=== PATIENT | female | born 1960 | race Caucasian/White ===

== ENCOUNTER 2024-09-01 14:05 | Inpatient (IN) ==
[2024-09-01 15:11] LABS: Hematocrit (blood only) 40.5 % (37.0-47.0); Hemoglobin 13.0 g/dl (12.0-16.0); Immature Granulocytes # (auto) 0.03 K/uL (0.01-0.20); Immature Granulocytes % (auto) 0.3 %; Mean Corpuscular Hemoglobin 31.3 pg (25.0-34.0); Mean Corpuscular Volume 97.4 fL (80.0-100.0); Platelet Count 565 K/uL (130-400); RDW Standard Deviation 54.5 fL (36.4-46.3); Red Blood Count 4.16 M/uL (4.20-5.40); White Blood Count 10.34 K/ul (4.8-10.8)
--- NOTE | 2024-09-01 15:24 | Emergency Department Note ---
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 This was diagnosed last April 2023. The patient started noticing left leg swelling. The patient also noticed heavy breathing. She called her family doctor and was encouraged to come to the emergency department. She was started on Lasix recently because of the leg swelling. ROS: See above HPI for pertinent positives & negatives. A total of 10 systems reviewed and were otherwise negative. PAST MEDICAL HISTORY: See Below PAST SURGICAL HISTORY: See Below FAMILY HISTORY: See Below SOCIAL HISTORY: See Below HOME MEDICATIONS: See Below ALLERGIES: See Below VITALS: See Below PHYSICAL EXAMINATION: GENERAL: Patient is awake alert in no acute distress patient is resting comfortably and showing no signs of anxiety EYES: The conjunctivae are clear. The pupils are round and reactive. EARS, NOSE, MOUTH AND THROAT: The nose is without any evidence of any deformity. NECK: The neck is nontender and supple. JVD was noted. RESPIRATORY: Rales were noted in the right lung field. There is no tachypnea or conversational dyspnea. CARDIOVASCULAR: Regular rate and rhythm noted there no murmurs rubs or gallops normal S1 normal S2. GASTROINTESTINAL: The abdomen is soft. Abdomen is nontender. MUSCULOSKELETAL/EXTREMITIES: Right lower extremity amputation was noted. SKIN: Pedal edema was noted in the left leg. Skin was warm and dry. NEUROLOGIC: Patient is awake alert and oriented x3 MEDICAL DECISION MAKING: The patient is a 64-year-old female who presented to the emergency department because of difficulty breathing. The patient has a history of a sarcoma in her right leg. This was treated surgically with amputation. She also has a history of venous thromboembolic disease. The patient was sent to the emergency department by her cancer doctor because of left leg swelling. I discussed the patient's laboratory and radiographic studies with her. The patient's primary oncologist did talk to me as well. There is concerned about a pelvic mass or possibly venous thromboembolic disease of the pelvis. For this reason CT venogram was obtained. The report was reviewed. I discussed patient's laboratory and radiographic studies with her. Ultimately I do feel the patient would be a better candidate for inpatient management especially given her hypoxia as well as her bilateral pleural effusions. She does take blood thinners. I discussed her condition with the on-call [facility] hospitalist. They have agreed to evaluate the patient in the emergency department. Triage Nursing notes reviewed. Prior medical records reviewed Vital Signs: reviewed and remarkable for no significant abnormalities Differential diagnosis: Reactive airway disease, pneumonia, pneumothorax, COPD, CHF, infections, cardiac ischemia, pulmonary embolism, musculoskeletal, gastrointestinal, as well as other pathologies. ER treatment provided: See below Diagnostics interpreted by me: ECG: EKG was obtained in the emergency department. My interpretation is sinus tachycardia at 104 bpm. There is no ectopy. There is no acute ST segment abnormalities noted. This was compared to a tracing from May 02, 2023. No changes were noted. Cardiac Monitoring: An order was placed for continuous cardiac monitoring. The monitor shows a rate of 99 bpm with sinus rhythm. Laboratory studies: As stated above and show below. Imaging studies: See below. Radiographic imaging was reviewed by myself Consultation(s): I discussed this case with Dr. Wilson who is the patient's primary oncologist. I discussed this case with Dr. Hannah [facility] Past Med/Surg History Problem List (Updated 09/01/24 @ 20:36 by Henry Rashid DO) Hypoxia (Acute) Leg edema (Acute) Kidney mass (Acute) SOB (shortness of breath) (Acute) Bilateral pleural effusion (Acute) Medical History Pulmonary embolism Sarcoma of right thigh CLL (chronic lymphocytic leukemia) Surgical History History of cataract surgery Bilateral eyes History of hysterectomy Social History Smoking Status: Never smoker Preferred Language: Bengali Beliefs That Will Affect Care: Amish Feels Safe at Home: Yes Allergies Allergies Allergy/AdvReac Type Severity Reaction Status Date / Time procaine [From Novocain] Allergy Unknown Unknown Verified 05/19/23 20:22 Home Meds Home Medications Medication Instructions Recorded Confirmed cholecalciferol (vitamin D3) 125 1,000 mcg PO QAM 04/16/23 09/01/24 mcg (5,000 unit) tablet (Vitamin D3) apixaban 5 mg tablet (Eliquis) 5 mg PO BID 05/02/23 09/01/24 gabapentin 100 mg capsule 300 mg PO TID 05/02/23 09/01/24 prochlorperazine maleate 10 mg 10 mg PO Q6H PRN Nausea 05/02/23 09/01/24 tablet (Compazine) albuterol sulfate 90 mcg/actuation 2 puff inhalation Q4H PRN sob 09/01/24 09/01/24 aerosol inhaler (Ventolin HFA) hydrochlorothiazide 25 mg tablet 25 mg PO QAM 09/01/24 09/01/24 ondansetron 8 mg disintegrating 8 mg PO DIRECTED PRN n/v 09/01/24 09/01/24 tablet potassium chloride 20 mEq 40 meq PO DAILY 09/01/24 09/01/24 tablet,extended release(part/cryst) Results & Data (ED) Vital Signs Vital Signs - 24 hr 09/01/24 14:25 09/01/24 14:29 09/01/24 14:29 Temperature 36.9 C Temperature Source Temporal Artery Scan Pulse Rate 109 H Pulse Rate [Apical] 108 H Pulse Rate from SpO2 Sensor Pulse Rhythm [Apical] Respiratory Rate 18 20 Respiratory Effort / Characteristics Non-Labored Spontaneous Non-Labored Spontaneous Respiratory Depth Normal Normal Respiratory Pattern Regular Regular Blood Pressure 118/74 Blood Pressure [Right Arm] 123/68 Blood Pressure Mean 88 Blood Pressure Mean [Right Arm] 86 Blood Pressure Position [Right Arm] Pulse Oximetry 94 94 93 Oxygen Delivery Method Room Air Room Air Room Air Oxygen Flow Rate Sepsis Recent Fever Within 48 Hours No Sepsis New/Unexplained Change in Mental Status N/A Sepsis Action Taken by Nursing No Action Required 09/01/24 14:48 09/01/24 14:53 09/01/24 14:53 Temperature Temperature Source Pulse Rate 105 H Pulse Rate [Apical] Pulse Rate from SpO2 Sensor Pulse Rhythm [Apical] Respiratory Rate 25 H Respiratory Effort / Characteristics Respiratory Depth Respiratory Pattern Blood Pressure 112/67 112/67 Blood Pressure [Right Arm] Blood Pressure Mean 93 93 Blood Pressure Mean [Right Arm] Blood Pressure Position [Right Arm] Pulse Oximetry Oxygen Delivery Method Oxygen Flow Rate Sepsis Recent Fever Within 48 Hours Sepsis New/Unexplained Change in Mental Status Sepsis Action Taken by Nursing 09/01/24 14:56 09/01/24 14:58 09/01/24 15:15 Temperature Temperature Source Pulse Rate 108 H 108 H Pulse Rate [Apical] Pulse Rate from SpO2 Sensor 108 H Pulse Rhythm [Apical] Respiratory Rate 19 Respiratory Effort / Characteristics Respiratory Depth Respiratory Pattern Blood Pressure Blood Pressure [Right Arm] Blood Pressure Mean Blood Pressure Mean [Right Arm] Blood Pressure Position [Right Arm] Pulse Oximetry 92 93 Oxygen Delivery Method Room Air Oxygen Flow Rate Sepsis Recent Fever Within 48 Hours Sepsis New/Unexplained Change in Mental Status Sepsis Action Taken by Nursing 09/01/24 15:51 09/01/24 16:05 09/01/24 16:21 Temperature Temperature Source Pulse Rate 105 H 107 H Pulse Rate [Apical] 109 H Pulse Rate from SpO2 Sensor 104 H 108 H Pulse Rhythm [Apical] Respiratory Rate 20 26 H 28 H Respiratory Effort / Characteristics Respiratory Depth Normal Respiratory Pattern Blood Pressure Blood Pressure [Right Arm] 130/76 Blood Pressure Mean Blood Pressure Mean [Right Arm] 94 Blood Pressure Position [Right Arm] Semi-fowlers Pulse Oximetry 94 93 94 Oxygen Delivery Method Room Air Oxygen Flow Rate Sepsis Recent Fever Within 48 Hours Sepsis New/Unexplained Change in Mental Status Sepsis Action Taken by Nursing 09/01/24 16:30 09/01/24 16:30 09/01/24 16:30 Temperature Temperature Source Pulse Rate 103 H Pulse Rate [Apical] Pulse Rate from SpO2 Sensor 101 H Pulse Rhythm [Apical] Respiratory Rate 25 H Respiratory Effort / Characteristics Respiratory Depth Respiratory Pattern Blood Pressure 122/79 122/79 Blood Pressure [Right Arm] Blood Pressure Mean 91 91 Blood Pressure Mean [Right Arm] Blood Pressure Position [Right Arm] Pulse Oximetry 93 Oxygen Delivery Method Oxygen Flow Rate Sepsis Recent Fever Within 48 Hours Sepsis New/Unexplained Change in Mental Status Sepsis Action Taken by Nursing 09/01/24 17:33 09/01/24 18:00 09/01/24 18:56 Temperature Temperature Source Pulse Rate 105 H 103 H Pulse Rate [Apical] 107 H Pulse Rate from SpO2 Sensor 106 H 102 H Pulse Rhythm [Apical] Respiratory Rate 27 H 22 28 H Respiratory Effort / Characteristics Respiratory Depth Respiratory Pattern Blood Pressure Blood Pressure [Right Arm] 107/71 Blood Pressure Mean Blood Pressure Mean [Right Arm] 83 Blood Pressure Position [Right Arm] Semi-fowlers Pulse Oximetry 96 96 95 Oxygen Delivery Method Nasal Cannula Oxygen Flow Rate 2 Sepsis Recent Fever Within 48 Hours Sepsis New/Unexplained Change in Mental Status Sepsis Action Taken by Nursing 09/01/24 19:30 Temperature Temperature Source Pulse Rate Pulse Rate [Apical] 99 H Pulse Rate from SpO2 Sensor Pulse Rhythm [Apical] Regular Respiratory Rate 24 Respiratory Effort / Characteristics Non-Labored Spontaneous Respiratory Depth Normal Respiratory Pattern Regular Blood Pressure Blood Pressure [Right Arm] 113/67 Blood Pressure Mean Blood Pressure Mean [Right Arm] 82 Blood Pressure Position [Right Arm] Pulse Oximetry 96 Oxygen Delivery Method Room Air Oxygen Flow Rate Sepsis Recent Fever Within 48 Hours Sepsis New/Unexplained Change in Mental Status Sepsis Action Taken by Skilled Nursing Medications Current Medication List: was personally reviewed by me Laboratory Data Attestation: I reviewed the patient's lab results. 09/01/24 14:49 09/01/24 14:49 Lab Results 09/01/24 09/01/24 Range/Units 14:49 15:06 WBC 10.34 (4.8-10.8) K/ul RBC 4.16 L (4.20-5.40) M/uL Hgb 13.0 (12.0-16.0) g/dl Hct 40.5 (37.0-47.0) % MCV 97.4 (80.0-100.0) fL MCH 31.3 (25.0-34.0) pg MCHC 32.1 (32.0-36.0) g/dL RDW Std Deviation 54.5 H (36.4-46.3) fL RDW Coeff of Ada 15.1 H (11.5-14.5) % Plt Count 565 H (130-400) K/uL MPV 9.6 (9.4-12.4) fL Immature Gran % (Auto) 0.3 % Neut % (Auto) 74.8 % Lymph % (Auto) 13.3 % Norton % (Auto) 10.1 % Eos % (Auto) 0.9 % Baso % (Auto) 0.6 % Neut # (Auto) 7.74 H (1.40-6.50) K/uL Lymph # (Auto) 1.38 (1.20-3.40) K/uL Norton # (Auto) 1.04 H (0.11-0.59) K/uL Eos # (Auto) 0.09 (0.00-0.50) K/uL Baso # (Auto) 0.06 (0.00-0.20) K/uL Immature Gran # (Auto) 0.03 (0.01-0.20) K/uL PT 10.4 (9.0-12.0) Seconds INR 1.0 (0.9-1.1) APTT 29 (21-31) Seconds PTT Ratio 1.1 Sodium 140 (136-145) mmol/L Potassium 3.7 (3.5-5.1) mmol/L Chloride 101 (98-107) mmol/L Carbon Dioxide 32 (21-32) mmol/L Anion Gap 7 (3-11) BUN 10 (6-23) mg/dl Creatinine 0.52 L (0.6-1.2) mg/dl Est Cr Clr Drug Dosing Not Reportable eGFR 102.40 BUN/Creatinine Ratio 19.2 (10-20) Glucose 120 H (70-99(Fasting)) mg/dl Calcium 8.6 (8.6-10.3) mg/dl Total Bilirubin 0.4 (0.2-1.0) mg/dl AST 18 (13-39) U/L ALT 12 (7-52) U/L Alkaline Phosphatase 85 (34-104) U/L Troponin I High Sens 3.2 (0-14) pg/ml B-Natriuretic Peptide 26 (0-100) pg/ml Total Protein 6.1 (6.0-8.3) gm/dl Albumin 3.3 L (3.4-5.0) gm/dl Globulin 2.8 (2.5-4.0) gm/dl Albumin/Globulin Ratio 1.2 (0.9-2) Lipase 14 (11-82) U/L SARS-CoV-2 (PCR) NEGATIVE (Negative) Influenza Type A (PCR) Negative (Neg) Influenza Type B (PCR) Negative (Neg) RSV (RT-PCR) Negative (Neg) Administered Medications Discontinued Medications Ioversol (Optiray 320 125ml) 115 ml IV ONCE ONE Stop: 09/01/24 17:00 Last Admin: 09/01/24 17:00 Dose: 115 ml Documented By: WALI Ioversol (Optiray 320 125ml) 115 ml IV ONCE ONE Stop: 09/01/24 19:10 Last Admin: 09/01/24 19:09 Dose: 115 ml Documented By: WALI Imaging Data Attestation: I personally reviewed and interpreted this imaging study as follows: My Impression: 1 view chest x-ray was obtained in the emergency department. My interpretation is bilateral pleural effusions, final report below. Radiologist's Impression: Chest X-Ray 09/01/24 14:58 XR chest 2V PA/lateral CLINICAL HISTORY: sent by PCP for CT chest COMPARISON STUDY: 05/02/2023 FINDINGS: Since the prior examination, multiple bilateral pulmonary masses have developed. There are bilateral pleural effusions. There is a MediPort catheter with the tip in the near the cavoatrial junction. IMPRESSION: Findings highly suggestive of metastatic lung disease with bilateral pleural effusions. ACT 112: Negative or not required by law. Electronically signed by: Carolina Painting M.D. 09/01/2024 3:57 PM Venous Doppler Study 09/01/24 14:58 EXAM: US venous doppler LE LT CLINICAL HISTORY: swelling TECHNIQUE: Ultrasound examination of the left lower extremity veins was performed in real time and duplex. One or more of the following were performed: spectral analysis, resistive index, waveform analysis, and pulsed Doppler. COMPARISON: None. FINDINGS: Normal phasic, non-pulsatile, and spontaneous flow is noted in the left common femoral, superficial femoral, popliteal, anterior tibial, posterior tibial, and peroneal veins. Visualized veins of the left lower extremity demonstrate normal compressibility. No sonographic evidence of acute deep vein thrombosis (DVT) is detected in the visualized veins of the lower extremity. Compression and Augmentation: All evaluated veins compress fully with applied transducer pressure. Augmentation of venous flow is noted with distal compression. Additional Findings: Subcutaneous calf edema. IMPRESSION: 1. No sonographic evidence of acute DVT was detected in the left lower extremity at the time of examination. 2. Subcutaneous calf edema. Disclaimer: DVT could be missed early in the disease when the clot burden is minimal. For patients with moderate and high pretest probability of DVT and negative ultrasound, the [employer] clinical guidelines recommend testing with a D-dimer assay or repeat ultrasound in 5-7 days. If symptoms worsen, the Society of Radiologists in Ultrasound recommends repeating the ultrasound even earlier. Electronically signed by Real Hester 09-01-2024 6:37 PM Chest CTA 09/01/24 16:40 Technique: Axial computed tomography images were obtained of the chest after the administration of intravenous contrast according to the CT angiogram protocol Findings: There is no definite sign of pulmonary embolism. There are multiple pulmonary nodules bilaterally, measuring up to 2.5 cm. There is no pneumothorax. There are large bilateral pleural effusions There are enlarged mediastinal lymph nodes, measuring up to 5.4 cm. The thoracic aorta appears unremarkable with no sign of aneurysm or dissection. There is no pericardial effusion. There is a right chest wall port There is a 3.6 cm mass in the left thyroid lobe. The visualized upper abdomen appears unremarkable. No fracture is seen. No focal osseous lesion is evident Impression: 1. No definite sign of pulmonary embolism 2. Multiple pulmonary nodules, likely due to metastatic disease 3. Large bilateral pleural effusions 4. Mediastinal adenopathy, consistent with metastatic disease 5. 3.6 cm thyroid mass. A thyroid ultrasound is recommended for further evaluation ACT 112: Positive. There are findings on this exam that require communication between the performing entity and the patient following Patient Test Result Information Act ([place] ACT 112) guidelines. Electronically signed by Bulmaro Jain 09-01-2024 5:[address] 09/01/24 18:54 Technique: Axial computed tomography images were obtained of the abdomen and pelvis after the administration of intravenous contrast. No prior CT is available for comparison. Findings: The liver is overall of normal size, attenuation, and contour with no sign of cirrhosis or significant fatty infiltration. There is an apparent small 3 mm cyst in the left hepatic lobe. No liver mass lesion is seen. The portal vein is patent. A gallstone is present. There is no definite sign of acute cholecystitis. No bile duct dilatation is noted. The spleen is of normal size. No focal splenic lesion is evident. There is no sign of acute pancreatitis. There is a 9 mm apparent rim calcified cyst in the mid pancreatic body and there is a 1.6 cm apparent cyst in the proximal pancreatic body. There is also a 6 mm apparent cyst in the uncinate process of the pancreas. The pancreatic duct is mildly dilated, measuring up to 4 mm. The adrenal glands appear unremarkable. No definite renal or proximal ureteral calculi are seen on this contrast-enhanced study. There is no hydronephrosis or perinephric stranding. There is a 1.8 cm heterogeneous lesion in the medial aspect of the upper right kidney that could represent a solid mass. There is a 1.7 cm left renal cyst as well as an 8 mm left renal cyst The aorta is of normal caliber. No abdominal adenopathy is seen. The stomach appears normal. There is no sign of small bowel obstruction. There is sigmoid diverticulosis without definite diverticulitis. No free intraperitoneal fluid or air is identified. No distal ureteral or bladder calculi are seen. No bladder mass lesion is evident. The iliac arteries are of normal caliber. No pelvic adenopathy is noted. There are large bilateral pleural effusions. 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 There are multiple chronic bone fragments adjacent to the right acetabulum. There is lumbar scoliosis and degenerative disc disease. There is diffuse body wall edema Impression: 1. 1.8 cm right renal lesion that could represent renal cell carcinoma. Dedicated renal protocol abdominal CT or MRI with and without contrast is recommended for further evaluation 2. No definite sign of metastatic disease or local invasion 3. Large bilateral pleural effusions 4. Cholelithiasis without evidence of acute cholecystitis 5. Hepatic and left renal cysts 6. Several pancreatic cysts, likely benign congenital or post inflammatory cysts but indeterminate in nature. There is also mild pancreatic ductal dilatation. These findings could also be further evaluated by the above recommended follow-up study 7. Diverticulosis without evidence of diverticulitis ACT 112: Positive. There are findings on this exam that require communication between the performing entity and the patient following Patient Test Result Information Act ([place] ACT 112) guidelines. Electronically signed by Bulmaro Jain 09-01-2024 7:46 PM Discharge Plan Visit Data Chief Complaint: Shortness of Breath/Dyspnea Stated Complaint: SOB, L LEG SWELLING, DOC REF ED Provider: Henry Rashid Discharge Problem: Bilateral pleural effusion, SOB (shortness of breath), Kidney mass, Leg edema, Hypoxia Patient Disposition: Being Evaluated by Hospitalist Condition: Fair Forms Stand Alone Forms: My [facility] Highlight Prescriptions Prescriptions: No Action cholecalciferol (vitamin D3) [Vitamin D3] 125 mcg (5,000 unit) Tablet 1,000 mcg PO QAM ondansetron 8 mg Tablet,Disintegrating 8 mg PO DIRECTED PRN (Reason: n/v) potassium chloride 20 mEq tablet,ER particles/crystals 40 meq PO DAILY hydrochlorothiazide 25 mg tablet 25 mg PO QAM albuterol sulfate [Ventolin HFA] 90 mcg/actuation HFA aerosol inhaler 2 puff INHALATION Q4H PRN (Reason: sob) prochlorperazine maleate [Compazine] 10 mg tablet 10 mg PO Q6H PRN (Reason: Nausea) gabapentin 100 mg capsule 300 mg PO TID Eliquis 5 mg tablet 5 mg PO BID Referrals Referrals: Venessa Kaufman MD [Primary Care Provider] -
[2024-09-01 15:26] LABS: Alanine Aminotransferase 12 U/L (7-52); Albumin Globulin Ratio 1.2 (0.9-2); Alkaline Phosphatase 85 U/L (34-104); Anion Gap 7 (3-11); Bilirubin,Total 0.4 mg/dl (0.2-1.0); Blood Urea Nitrogen 10 mg/dl (6-23); Calcium 8.6 mg/dl (8.6-10.3); Carbon Dioxide 32 mmol/L (21-32); Chloride 101 mmol/L (98-107); Globulin 2.8 gm/dl (2.5-4.0); Glucose 120 mg/dl (70-99(Fasting)); Lipase 14 U/L (11-82); Potassium 3.7 mmol/L (3.5-5.1); Sodium 140 mmol/L (136-145); Total Protein 6.1 gm/dl (6.0-8.3)
[2024-09-01 15:43] LABS: INR 1.0 (0.9-1.1); Partial Thromboplastin Time 29 Seconds (21-31); Prothrombin Time 10.4 Seconds (9.0-12.0)
[2024-09-01 15:53] LABS: Influenza A virus by PCR Negative (Neg); Influenza B virus by PCR Negative (Neg); SARS CoV2 RNA(COVID-19) Ceph NEGATIVE (Negative)
--- NOTE | 2024-09-01 15:58 | XRay Report ---
XR chest 2V PA/lateral CLINICAL HISTORY: sent by PCP for CT chest COMPARISON STUDY: 05/02/2023 FINDINGS: Since the prior examination, multiple bilateral pulmonary masses have developed. There are bilateral pleural effusions. There is a MediPort catheter with the tip in the near the cavoatrial david ction. IMPRESSION: Findings highly suggestive of metastatic lung disease with bilateral pleural effusions. ACT 112: Negative or not required by law. Electronically signed by: Carolina Painting M.D. 09/01/2024 3:57 PM
[2024-09-01] MEDS: OPTIRAY 320 125ml IV ONE ×2 (17:00→19:09)
--- NOTE | 2024-09-01 17:37 | CT Scan Report ---
Technique: Axial computed tomography images were obtained of the chest after the administration of intravenous contrast according to the CT angiogram protocol Findings: There is no definite sign of pulmonary embolism. There are multiple pulmonary nodules bilaterally, measuring up to 2.5 cm. There is no pneumothorax. There are large bilateral pleural effusions There are enlarged mediastinal lymph nodes, measuring up to 5.4 cm. The thoracic aorta appears unremarkable with no sign of aneurysm or dissection. There is no pericardial effusion. There is a right chest wall port There is a 3.6 cm mass in the left thyroid lobe. The visualized upper abdomen appears unremarkable. No fracture is seen. No focal osseous lesion is evident Impression: 1. No definite sign of pulmonary embolism 2. Multiple pulmonary nodules, likely due to metastatic disease 3. Large bilateral pleural effusions 4. Mediastinal adenopathy, consistent with metastatic disease 5. 3.6 cm thyroid mass. A thyroid ultrasound is recommended for further evaluation ACT 112: Positive. There are findings on this exam that require communication between the performing entity and the patient following Patient Test Result Information Act ([place] ACT 112) guidelines. Electronically signed by Bulmaro Jain 09-01-2024 5:36 PM
--- NOTE | 2024-09-01 18:37 | Ultrasound Report ---
EXAM: US venous doppler LE LT CLINICAL HISTORY: swelling TECHNIQUE: Ultrasound examination of the left lower extremity veins was performed in real time and duplex. One or more of the following were performed: spectral analysis, resistive index, waveform analysis, and pulsed Doppler. COMPARISON: None. FINDINGS: Normal phasic, non-pulsatile, and spontaneous flow is noted in the left common femoral, superficial femoral, popliteal, anterior tibial, posterior tibial, and peroneal veins. Visualized veins of the left lower extremity demonstrate normal compressibility. No sonographic evidence of acute deep vein thrombosis (DVT) is detected in the visualized veins of the lower extremity. Compression and Augmentation: All evaluated veins compress fully with applied transducer pressure. Augmentation of venous flow is noted with distal compression. Additional Findings: Subcutaneous calf edema. IMPRESSION: 1. No sonographic evidence of acute DVT was detected in the left lower extremity at the time of examination. 2. Subcutaneous calf edema. Disclaimer: DVT could be missed early in the disease when the clot burden is minimal. For patients with moderate and high pretest probability of DVT and negative ultrasound, the [employer] clinical guidelines recommend testing with a D-dimer assay or repeat ultrasound in 5-7 days. If symptoms worsen, the Society of Radiologists in Ultrasound recommends repeating the ultrasound even earlier. Electronically signed by Real Hester 09-01-2024 6:37 PM
--- NOTE | 2024-09-01 19:46 | CT Scan Report ---
Technique: Axial computed tomography images were obtained of the abdomen and pelvis after the administration of intravenous contrast. No prior CT is available for comparison. Findings: The liver is overall of normal size, attenuation, and contour with no sign of cirrhosis or significant fatty infiltration. There is an apparent small 3 mm cyst in the left hepatic lobe. No liver mass lesion is seen. The portal vein is patent. A gallstone is present. There is no definite sign of acute cholecystitis. No bile duct dilatation is noted. The spleen is of normal size. No focal splenic lesion is evident. There is no sign of acute pancreatitis. There is a 9 mm apparent rim calcified cyst in the mid pancreatic body and there is a 1.6 cm apparent cyst in the proximal pancreatic body. There is also a 6 mm apparent cyst in the uncinate process of the pancreas. The pancreatic duct is mildly dilated, measuring up to 4 mm. The adrenal glands appear unremarkable. No definite renal or proximal ureteral calculi are seen on this contrast-enhanced study. There is no hydronephrosis or perinephric stranding. There is a 1.8 cm heterogeneous lesion in the medial aspect of the upper right kidney that could represent a solid mass. There is a 1.7 cm left renal cyst as well as an 8 mm left renal cyst The aorta is of normal caliber. No abdominal adenopathy is seen. The stomach appears normal. There is no sign of small bowel obstruction. There is sigmoid diverticulosis without definite diverticulitis. No free intraperitoneal fluid or air is identified. No distal ureteral or bladder calculi are seen. No bladder mass lesion is evident. The iliac arteries are of normal caliber. No pelvic adenopathy is noted. There are large bilateral pleural effusions. 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 There are multiple chronic bone fragments adjacent to the right acetabulum. There is lumbar scoliosis and degenerative disc disease. There is diffuse body wall edema Impression: 1. 1.8 cm right renal lesion that could represent renal cell carcinoma. Dedicated renal protocol abdominal CT or MRI with and without contrast is recommended for further evaluation 2. No definite sign of metastatic disease or local invasion 3. Large bilateral pleural effusions 4. Cholelithiasis without evidence of acute cholecystitis 5. Hepatic and left renal cysts 6. Several pancreatic cysts, likely benign congenital or post inflammatory cysts but indeterminate in nature. There is also mild pancreatic ductal dilatation. These findings could also be further evaluated by the above recommended follow-up study 7. Diverticulosis without evidence of diverticulitis ACT 112: Positive. There are findings on this exam that require communication between the performing entity and the patient following Patient Test Result Information Act ([place] ACT 112) guidelines. Electronically signed by Bulmaro Jain 09-01-2024 7:46 PM
--- NOTE | 2024-09-01 22:02 | History & Physical Report ---
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 Patient is having left leg edema for last 3 weeks. She took 4 to 5 days of Lasix but did not help. And she was getting short of breath and last night the shortness of breath got worse and was advised to come to the hospital. ER spoke with oncology Dr. Wilson and was advised for CT venogram of abdomen pelvis and no clots were seen. CT chest showed bilateral pleural effusions. Currently resting comfortably and hemodynamic stable. Denies headache. When she gets chemo she has some blurred vision. Having some runny nose for couple of weeks. Has cough with yellowish phlegm. Denies any fevers. No difficulty swallowing. Appetite is good. Denies any chest pain. No nausea. No abdominal pain. Uses stool softeners. Micturating okay. Ambulates with a walker. Lives with her . Last chemo was about 4 weeks ago. Currently the plan to change her chemo and to start new chemo on coming Friday as per the patient. Shortness of breath Bilateral pleural effusion Metastatic lung disease Will place on IV Lasix for now We will hold hydrochlorothiazide while on Lasix Consult pulmonary in a.m. 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 Status post right hip disarticulation 05/06/2023 On gabapentin for phantom limb pain Patient was on gemcitabine and Taxotere chemotherapy for about a year for now Patient having progressive pulmonary metastatic disease and also hypodensities in the liver and indeterminate right renal lesion about 2.2 cm(1.8 cm on today's CAT scan) Plan to consider eribulin or pazopanib as per heme-onc notes Hypokalemia Continue home potassium supplements History of hyperparathyroidism Status post right parathyroidectomy Pancreatic cystic lesions Present on previous CAT scans in 2023 Follow-up Multiple thyroid nodules Following with endocrinology DVT prophylaxis On Eliquis Disposition Telemetry Full code. 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 Patient is having left leg edema for last 3 weeks. She took 4 to 5 days of Lasix but did not help. And she was getting short of breath and last night the shortness of breath got worse and was advised to come to the hospital. ER spoke with oncology Dr. Wilson and was advised for CT venogram of abdomen pelvis and no clots were seen. CT chest showed bilateral pleural effusions. Currently resting comfortably and hemodynamic stable. Denies headache. When she gets chemo she has some blurred vision. Having some runny nose for couple of weeks. Has cough with yellowish phlegm. Denies any fevers. No difficulty swallowing. Appetite is good. Denies any chest pain. No nausea. No abdominal pain. Uses stool softeners. Micturating okay. Ambulates with a walker. Lives with her . Last chemo was about 4 weeks ago. Currently the plan to change her chemo and to start new chemo on coming Friday as per the patient. Past medical history. As mentioned above. Past surgical history. Disarticulation of right leg at hip. Colonoscopy. Cystourethroscopy with stone removal. EGD. Right parathyroidectomy. Right knee arthroscopy. Puncture drainage of left breast cyst. Bilateral removal of ovaries. Bilateral cataracts. Tendon excision of the left index finger. Total abdominal hysterectomy with removal of tubes. Social history. . No smoking. No alcohol. No drug use. Family history. Mother had breast cancer. Non-Hodgkin's lymphoma. Hypertension. Father had pancreatic cancer. Colon cancer. Diabetes. Heart disorder. Sister had breast cancer. Sister had skin cancer. Maternal grandmot her had stroke. Allergies Allergy/AdvReac Type Severity Reaction Status Date / Time procaine [From Novocain] Allergy Unknown Unknown Verified 05/19/23 20:22 Home Medications Medication Instructions Recorded Confirmed Type cholecalciferol (vitamin D3) 125 1,000 mcg PO QAM 04/16/23 09/01/24 History mcg (5,000 unit) tablet (Vitamin D3) apixaban 5 mg tablet (Eliquis) 5 mg PO BID 05/02/23 09/01/24 History gabapentin 100 mg capsule 300 mg PO TID 05/02/23 09/01/24 History prochlorperazine maleate 10 mg 10 mg PO Q6H PRN Nausea 05/02/23 09/01/24 History tablet (Compazine) albuterol sulfate 90 mcg/actuation 2 puff inhalation Q4H PRN sob 09/01/24 09/01/24 History aerosol inhaler (Ventolin HFA) hydrochlorothiazide 25 mg tablet 25 mg PO QAM 09/01/24 09/01/24 History ondansetron 8 mg disintegrating 8 mg PO DIRECTED PRN n/v 09/01/24 09/01/24 History tablet potassium chloride 20 mEq 40 meq PO DAILY 09/01/24 09/01/24 History tablet,extended release(part/cryst) Past Med/Surg History Problem List (Updated 09/01/24 @ 20:36 by Henry Rashid DO) Hypoxia (Acute) Leg edema (Acute) Kidney mass (Acute) SOB (shortness of breath) (Acute) Bilateral pleural effusion (Acute) Medical History Pulmonary embolism Sarcoma of right thigh CLL (chronic lymphocytic leukemia) Surgical History History of cataract surgery Bilateral eyes History of hysterectomy Social History Smoking Status: Never smoker Second Hand Exposure: No; Do You Dip or Chew Tobacco: No; Tobacco Cessation Education Requested by Patient: No Hx Alcohol Use: No Hx Substance Use: No Preferred Language: Pashto Communication Ability: Effective Plush Cutter Required: No Beliefs That Will Affect Care: None Current Living Situation: Spouse Other Information That Helps Us Care for You: No Feels Safe at Home: Yes Safety Concerns: Feels Safe At This Time Assistive Devices: Glasses, Walker and Wheelchair Review of Systems Review of Systems: All systems reviewed & are unremarkable except as noted in HPI & below Physical Exam Physical Exam: General-Not in distress Head- atraumatic Eyes- PERRL, EOMI. ENT- oropharynx clear Neck- supple, no JVD no bruits appreciated Lungs- clear to auscultation no wheezing or crackles Heart- regular rate and rhythm rhythm; no murmur, no gallop. Abdomen- normal bowel sounds, soft, nontender, no distension Extremities- Left leg +2 edema seen Neuro- alert, oriented PERRL, EOMI; no facial palsy; no dysarthria; obeys simple commands Results & Data Results & Data Vital Signs (Past 12 Hours) Vital Signs Temp Pulse Pulse Resp BP BP Pulse Ox 09/01/24 21:00 97 H 22 95/77 L 94 09/01/24 19:30 99 H 24 113/67 96 09/01/24 18:56 107 H 28 H 107/71 95 09/01/24 18:00 103 H 22 96 09/01/24 17:33 105 H 27 H 96 09/01/24 16:30 103 H 25 H 93 09/01/24 16:30 122/79 09/01/24 16:30 122/79 09/01/24 16:21 107 H 28 H 94 09/01/24 16:05 109 H 26 H 130/76 93 09/01/24 15:51 105 H 20 94 09/01/24 15:15 108 H 19 93 09/01/24 14:58 92 09/01/24 14:56 108 H 09/01/24 14:53 112/67 09/01/24 14:53 112/67 09/01/24 14:48 105 H 25 H 09/01/24 14:29 108 H 20 123/68 93 09/01/24 14:29 94 09/01/24 14:25 36.9 C 109 H 18 118/74 94 O2 Del Method O2 Flow Rate 09/01/24 21:00 Room Air 09/01/24 19:30 Room Air 09/01/24 18:56 Nasal Cannula 2 09/01/24 18:00 09/01/24 17:33 09/01/24 16:30 09/01/24 16:30 09/01/24 16:30 09/01/24 16:21 09/01/24 16:05 Room Air 09/01/24 15:51 09/01/24 15:15 09/01/24 14:58 Room Air 09/01/24 14:56 09/01/24 14:53 09/01/24 14:53 09/01/24 14:48 09/01/24 14:29 Room Air 09/01/24 14:29 Room Air 09/01/24 14:25 Room Air Diagnostic Findings Laboratory Results WBC 10.34 K/ul (4.8-10.8) 09/01/24 14:49 RBC 4.16 M/uL (4.20-5.40) L 09/01/24 14:49 Hgb 13.0 g/dl (12.0-16.0) 09/01/24 14:49 Hct 40.5 % (37.0-47.0) 09/01/24 14:49 MCV 97.4 fL (80.0-100.0) 09/01/24 14:49 MCH 31.3 pg (25.0-34.0) 09/01/24 14:49 MCHC 32.1 g/dL (32.0-36.0) 09/01/24 14:49 RDW Std Deviation 54.5 fL (36.4-46.3) H 09/01/24 14:49 RDW Coeff of Ada 15.1 % (11.5-14.5) H 09/01/24 14:49 Plt Count 565 K/uL (130-400) H 09/01/24 14:49 MPV 9.6 fL (9.4-12.4) 09/01/24 14:49 Immature Gran % (Auto) 0.3 % 09/01/24 14:49 Neut % (Auto) 74.8 % 09/01/24 14:49 Lymph % (Auto) 13.3 % 09/01/24 14:49 [place] % (Auto) 10.1 % 09/01/24 14:49 Eos % (Auto) 0.9 % 09/01/24 14:49 Baso % (Auto) 0.6 % 09/01/24 14:49 Neut # (Auto) 7.74 K/uL (1.40-6.50) H 09/01/24 14:49 Lymph # (Auto) 1.38 K/uL (1.20-3.40) 09/01/24 14:49 [place] # (Auto) 1.04 K/uL (0.11-0.59) H 09/01/24 14:49 Eos # (Auto) 0.09 K/uL (0.00-0.50) 09/01/24 14:49 Baso # (Auto) 0.06 K/uL (0.00-0.20) 09/01/24 14:49 Immature Gran # (Auto) 0.03 K/uL (0.01-0.20) 09/01/24 14:49 PT 10.4 Seconds (9.0-12.0) 09/01/24 14:49 INR 1.0 (0.9-1.1) 09/01/24 14:49 APTT 29 Seconds (21-31) 09/01/24 14:49 PTT Ratio 1.1 09/01/24 14:49 Sodium 140 mmol/L (136-145) 09/01/24 14:49 Potassium 3.7 mmol/L (3.5-5.1) 09/01/24 14:49 Chloride 101 mmol/L (98-107) 09/01/24 14:49 Carbon Dioxide 32 mmol/L (21-32) 09/01/24 14:49 Anion Gap 7 (3-11) 09/01/24 14:49 BUN 10 mg/dl (6-23) 09/01/24 14:49 Creatinine 0.52 mg/dl (0.6-1.2) L 09/01/24 14:49 Est Cr Clr Drug Dosing Not Reportable 09/01/24 14:49 eGFR 102.40 09/01/24 14:49 BUN/Creatinine Ratio 19.2 (10-20) 09/01/24 14:49 Glucose 120 mg/dl (70-99(Fasting)) H 09/01/24 14:49 Calcium 8.6 mg/dl (8.6-10.3) 09/01/24 14:49 Total Bilirubin 0.4 mg/dl (0.2-1.0) 09/01/24 14:49 AST 18 U/L (13-39) 09/01/24 14:49 ALT 12 U/L (7-52) 09/01/24 14:49 Alkaline Phosphatase 85 U/L (34-104) 09/01/24 14:49 Troponin I High Sens 3.2 pg/ml (0-14) 09/01/24 14:49 B-Natriuretic Peptide 26 pg/ml (0-100) 09/01/24 14:49 Total Protein 6.1 gm/dl (6.0-8.3) 09/01/24 14:49 Albumin 3.3 gm/dl (3.4-5.0) L 09/01/24 14:49 Globulin 2.8 gm/dl (2.5-4.0) 09/01/24 14:49 Albumin/Globulin Ratio 1.2 (0.9-2) 09/01/24 14:49 Lipase 14 U/L (11-82) 09/01/24 14:49 SARS-CoV-2 (PCR) NEGATIVE (Negative) 09/01/24 15:06 Influenza Type A (PCR) Negative (Neg) 09/01/24 15:06 Influenza Type B (PCR) Negative (Neg) 09/01/24 15:06 RSV (RT-PCR) Negative (Neg) 09/01/24 15:06 Impressions Chest X-Ray 09/01/24 14:58 XR chest 2V PA/lateral CLINICAL HISTORY: sent by PCP for CT chest COMPARISON STUDY: 05/02/2023 FINDINGS: Since the prior examination, multiple bilateral pulmonary masses have developed. There are bilateral pleural effusions. There is a MediPort catheter with the tip in the near the cavoatrial junction. IMPRESSION: Findings highly suggestive of metastatic lung disease with bilateral pleural effusions. ACT 112: Negative or not required by law. Electronically signed by: Carolina Painting M.D. 09/01/2024 3:57 PM Venous Doppler Study 09/01/24 14:58 EXAM: US venous doppler LE LT CLINICAL HISTORY: swelling TECHNIQUE: Ultrasound examination of the left lower extremity veins was performed in real time and duplex. One or more of the following were performed: spectral analysis, resistive index, waveform analysis, and pulsed Doppler. COMPARISON: None. FINDINGS: Normal phasic, non-pulsatile, and spontaneous flow is noted in the left common femoral, superficial femoral, popliteal, anterior tibial, posterior tibial, and peroneal veins. Visualized veins of the left lower extremity demonstrate normal compressibility. No sonographic evidence of acute deep vein thrombosis (DVT) is detected in the visualized veins of the lower extremity. Compression and Augmentation: All evaluated veins compress fully with applied transducer pressure. Augmentation of venous flow is noted with distal compression. Additional Findings: Subcutaneous calf edema. IMPRESSION: 1. No sonographic evidence of acute DVT was detected in the left lower extremity at the time of examination. 2. Subcutaneous calf edema. Disclaimer: DVT could be missed early in the disease when the clot burden is minimal. For patients with moderate and high pretest probability of DVT and negative ultrasound, the [employer] clinical guidelines recommend testing with a D-dimer assay or repeat ultrasound in 5-7 days. If symptoms worsen, the Society of Radiologists in Ultrasound recommends repeating the ultrasound even earlier. Electronically signed by Real Hester 09-01-2024 6:37 PM Chest CTA 09/01/24 16:40 Technique: Axial computed tomography images were obtained of the chest after the administration of intravenous contrast according to the CT angiogram protocol Findings: There is no definite sign of pulmonary embolism. There are multiple pulmonary nodules bilaterally, measuring up to 2.5 cm. There is no pneumothorax. There are large bilateral pleural effusions There are enlarged mediastinal lymph nodes, measuring up to 5.4 cm. The thoracic aorta appears unremarkable with no sign of aneurysm or dissection. There is no pericardial effusion. There is a right chest wall port There is a 3.6 cm mass in the left thyroid lobe. The visualized upper abdomen appears unremarkable. No fracture is seen. No focal osseous lesion is evident Impression: 1. No definite sign of pulmonary embolism 2. Multiple pulmonary nodules, likely due to metastatic disease 3. Large bilateral pleural effusions 4. Mediastinal adenopathy, consistent with metastatic disease 5. 3.6 cm thyroid mass. A thyroid ultrasound is recommended for further evaluation ACT 112: Positive. There are findings on this exam that require communication between the performing entity and the patient following Patient Test Result Information Act ([place] ACT 112) guidelines. Electronically signed by Bulmaro Jain 09-01-2024 5:[address] 09/01/24 18:54 Technique: Axial computed tomography images were obtained of the abdomen and pelvis after the administration of intravenous contrast. No prior CT is available for comparison. Findings: The liver is overall of normal size, attenuation, and contour with no sign of cirrhosis or significant fatty infiltration. There is an apparent small 3 mm cyst in the left hepatic lobe. No liver mass lesion is seen. The portal vein is patent. A gallstone is present. There is no definite sign of acute cholecystitis. No bile duct dilatation is noted. The spleen is of normal size. No focal splenic lesion is evident. There is no sign of acute pancreatitis. There is a 9 mm apparent rim calcified cyst in the mid pancreatic body and there is a 1.6 cm apparent cyst in the proximal pancreatic body. There is also a 6 mm apparent cyst in the uncinate process of the pancreas. The pancreatic duct is mildly dilated, measuring up to 4 mm. The adrenal glands appear unremarkable. No definite renal or proximal ureteral calculi are seen on this contrast-enhanced study. There is no hydronephrosis or perinephric stranding. There is a 1.8 cm heterogeneous lesion in the medial aspect of the upper right kidney that could represent a solid mass. There is a 1.7 cm left renal cyst as well as an 8 mm left renal cyst The aorta is of normal caliber. No abdominal adenopathy is seen. The stomach appears normal. There is no sign of small bowel obstruction. There is sigmoid diverticulosis without definite diverticulitis. No free intraperitoneal fluid or air is identified. No distal ureteral or bladder calculi are seen. No bladder mass lesion is evident. The iliac arteries are of normal caliber. No pelvic adenopathy is noted. There are large bilateral pleural effusions. 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 There are multiple chronic bone fragments adjacent to the right acetabulum. There is lumbar scoliosis and degenerative disc disease. There is diffuse body wall edema Impression: 1. 1.8 cm right renal lesion that could represent renal cell carcinoma. Dedicated renal protocol abdominal CT or MRI with and without contrast is recommended for further evaluation 2. No definite sign of metastatic disease or local invasion 3. Large bilateral pleural effusions 4. Cholelithiasis without evidence of acute cholecystitis 5. Hepatic and left renal cysts 6. Several pancreatic cysts, likely benign congenital or post inflammatory cysts but indeterminate in nature. There is also mild pancreatic ductal dilatation. These findings could also be further evaluated by the above recommended follow-up study 7. Diverticulosis without evidence of diverticulitis ACT 112: Positive. There are findings on this exam that require communication between the performing entity and the patient following Patient Test Result Information Act ([place] ACT 112) guidelines. Electronically signed by Bulmaro Jain 09-01-2024 7:46 PM ECG Additional Comments: ECG sinus tachycardia at rate of 104. No acute ST changes seen. QTc 462. Code Status & VTE Plan VTE Prophylaxis Plan VTE Prophylaxis will be ordered: Yes
[2024-09-01] MEDS ORDERED: POLYETHYLENE (MIRALAX) 17 GM PACK PO PRN (23:33)
[2024-09-01] MEDS ORDERED: NITROGLYCERIN SL 0.4 MG/TAB TAB SL PRN (23:33)
[2024-09-01] MEDS ORDERED: ALBUTEROL HFA 8 GM INHALER INH PRN (23:33)
[2024-09-02 07:03] LABS: Hematocrit (blood only) 37.5 % (37.0-47.0); Hemoglobin 11.9 g/dl (12.0-16.0); Immature Granulocytes # (auto) 0.02 K/uL (0.01-0.20); Immature Granulocytes % (auto) 0.3 %; Mean Corpuscular Hemoglobin 31.2 pg (25.0-34.0); Mean Corpuscular Volume 98.2 fL (80.0-100.0); Platelet Count 477 K/uL (130-400); RDW Standard Deviation 53.4 fL (36.4-46.3); Red Blood Count 3.82 M/uL (4.20-5.40); White Blood Count 7.13 K/ul (4.8-10.8)
[2024-09-02 07:21] LABS: Anion Gap 5.0 (3-11); Blood Urea Nitrogen 7.0 mg/dl (6-23); Calcium 8.0 mg/dl (8.6-10.3); Carbon Dioxide 31.0 mmol/L (21-32); Chloride 103.0 mmol/L (98-107); Creatinine Clr Calc Pharmacy 92.2 ml/min; Glucose 82.0 mg/dl (70-99(Fasting)); Magnesium 2.0 mg/dl (1.7-2.4); Potassium 3.6 mmol/L (3.5-5.1); Sodium 139.0 mmol/L (136-145)
[2024-09-02] MEDS: CHOLECALCIFEROL 25 MCG (1000 UNITS) TAB PO SCH (08:17)
[2024-09-02] MEDS: APIXABAN 5 MG TABLET PO SCH (08:17)
[2024-09-02] MEDS: hydroCHLOROthiazide 25 MG TAB PO SCH (08:18)
[2024-09-02] MEDS: FUROSEMIDE INJ 20 MG/2 ML VIAL IV SCH (08:18)
[2024-09-02] MEDS: GABAPENTIN 300 MG CAP PO SCH (08:18)
[2024-09-02] MEDS: POTASSIUM CHLORIDE CRTAB 20 MEQ TABCR PO SCH (08:23)
--- NOTE | 2024-09-02 14:10 | Hospitalist Progress Note ---
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 Patient is having left leg edema for last 3 weeks. She took 4 to 5 days of Lasix but did not help. And she was getting short of breath and last night the shortness of breath got worse and was advised to come to the hospital. She complains of cough w/ occ yellow sputum, denies fever, reports runny nose for couple of weeks. 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 Currently the plan to change her chemo and to start new chemo on coming Friday as per the patient. She is being managed for the following: Shortness of breath Likely malignant bilateral pleural effusion Metastatic lung disease Pt comes in w/ worsening sob, trialed lasix at home w/ no improvement. Trop, BNP wnl. ECHO w/ EF of 60-65%, LV systolic fxn nl, no RWMA. b/l large pl eff noted. CTA chest neg for PE, has metastatic pul nodules and reveals 3.6 cm left thyroid mass. c/w IV lasix 20 mg iv bid [hold hydrochlorothiazide while on Lasix], FR 1800 ml. Pulm consult, await recs. Left lower extremity edema: No DVT on LLE venous doppler, c/w lasix as above. No heart failure, CT venogram abd/pelvis not showing any obstruction to explain cause for LLE/pelvis edema. d/w pt's OP oncology, plan to get MRI pelvis. Left thyroid mass [3.6 cm] and right renal lesion [1.8 cm]: Noted on imagings while inpatient, discussed with Dr. Wilson, plan to follow-up & do follow-up test upon discharge. History of saddle pulm embolism in March 2023 and DVT: Continue Eliquis History of CLL: Under observation, f/u w/ onc on dc. 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 Follow-up Multiple thyroid nodules: Following with endocrinology DVT prophylaxis: On Eliquis Disposition: Telemetry Full code. Admission and Anticipated Discharge Date Admission Date: September 01, 2024 Subjective Patient was seen and examined at bedside. Patient was sitting up in chair, on 2 L oxygen via nasal cannula, NAD. Patient's at bedside was also updated on plan of care. Patient reports cough with occasional and scant light yellow sputum, denies fever or sore throat. Patient reports shortness of breath and worsening lower extremity swelling. Patient reports eating okay, moving bowels okay, denies any nausea or vomiting. We discussed the findings on admitting CTA chest and venogram CT. They were made aware of multiple metastatic pulmonary nodules and large bilateral pleural effusion. They were also made aware of left thyroid lobe nodule and right renal lesion. Answered all their questions and updated plan to get more imagings to f/u on those findings either as OP or IP. Physical Exam Physical Exam: General-Not in distress, on 2L NC O2 Head- atraumatic Eyes- PERRL, EOMI. ENT- oropharynx clear Neck- supple, no JVD no bruits appreciated Lungs- clear to auscultation no wheezing or crackles Heart- regular rate and rhythm rhythm; no murmur, no gallop. 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 Neuro- alert, oriented PERRL, EOMI; no facial palsy; no dysarthria; obeys simple commands Results & Data Results & Data Vital Signs (Past 12 Hours) Vital Signs Temp Pulse Pulse Resp BP Pulse Ox O2 Del Method 09/02/24 12:17 Nasal Cannula 09/02/24 11:30 36.6 C 98 H 16 101/56 L 95 Room Air 09/02/24 07:38 87 09/02/24 07:30 36.5 C 100 H 18 96/65 L 97 Nasal Cannula 09/02/24 03:13 36.5 C 98 H 18 101/58 L 95 Nasal Cannula O2 Flow Rate 09/02/24 12:17 2 09/02/24 11:30 09/02/24 07:38 09/02/24 07:30 1.5 09/02/24 03:13
--- NOTE | 2024-09-02 14:26 | Electrocardiogram Report ---
Test Reason : Blood Pressure : */* mmHG Vent. Rate : 104 BPM Atrial Rate : 104 BPM P-R Int : 148 ms QRS Dur : 80 ms QT Int : 352 ms P-R-T Axes : 39 77 60 degrees QTcB Int : 462 ms Sinus tachycardia Low voltage QRS Borderline ECG When compared with ECG of 02-May-2023 08:52, ST no longer elevated in Inferior leads Confirmed by Henry Restrepo ([id number]) on 09/02/2024 2:26:00 PM Referred By: Andre Wilson Confirmed By: Henry Restrepo
--- NOTE | 2024-09-02 14:42 | Pulmonary Consultation ---
Date of Consultation September 02, 2024 Assessment & Plan (1) SOB (shortness of breath): (2) Bilateral pleural effusion: (3) Hypoxia: Plan Melly Marrero is a 64-year-old female with past medical history of saddle pulmonary embolism on Eliqus, right lower extremity DVT, GERD, osteoporosis, CLL, anemia of chronic disease, anxiety, and high grade pleomorphic sarcoma involving the right thigh s/p disarticulation of the right leg at the pelvis with metastatic lung lesions; who presented to [facility] on 09/01/2024 with worsening shortness of breath and lower extremity edema despite Lasix. CT chest and CXR showed bilateral large pleural effusions. Bilateral pleural effusions possibly malignant v. other -CTA chest showed multiple lung masses, large bilateral pleural effusions. -Patient states that Dr. Wilson noted these effusions a few months ago but wanted to hold off on doing anything due to her being asymptomatic and likelihood they would reaccumulate. -Hold Eliquis for planned thoracentesis in the afternoon of 09/03. -Discussed options with Dr. Gutierrez and patient has elected to proceed with thoracentesis tomorrow afternoon and evaluate how she feels. -Will send pleural fluid for evaluation. -If malignant there is high likelihood it will reaccumulate in which case will discuss Pleurx catheter placement as an outpatient. Dyspnea; hypoxia -SpO2 reported 88% on presentation in ED. Maintain SpO2 > 92%. -Currently on 2L NC -Symptoms mildly improved with oxygen. -Could be related to bilateral pleural effusions will plan for thoracentesis tomorrow afternoon and will evaluate respiratory status. Thank you for allowing us to participate in this patient's care. Please feel free to reach out with questions or concerns. Supervising Physician Co-Signing Physician Notes Patient seen and examined. EMR reviewed. Images were independently reviewed. Discussed with patient and family at bedside. Agree with assessment plan as noted by SANTI. Bilateral effusions. The patient wants to focus on quality of life. We discussed options including doing nothing, pursuing diagnostic/therapeutic thoracentesis, and Pleurx catheter placement. The patient would like to get out of the hospital and focus on quality of life as quickly as possible. Seems reasonable to pursue initial diagnostic/therapeutic bilateral thoracenteses to see if this offers clinical benefit. This would also allow the patient to potentially be discharged tomorrow. Continue to hold anticoagulation. Should the effusions reaccumulate and additional palliative care measures, placement of indwelling Pleurx catheters in the outpatient setting could be considered. Recommendations and plan were discussed with the patient and questions were answered to the best my ability. Will plan on a bilateral diagnostic/therapeutic thoracentesis tomorrow afternoon. History of Present Illness Reason for Consultation: Shortness of breath with bilateral pleural effusions. Attending Physician: Humble Ross MD History of Present Illness Melly Marrero is a 64-year-old female with past medical history of saddle pulmonary embolism on Eliqus, right lower extremity DVT, GERD, osteoporosis, CLL, anemia of chronic disease, anxiety, and high grade pleomorphic sarcoma involving the right thigh s/p disarticulation of the right leg at the pelvis with metastatic lung lesions; who presented to [facility] on 09/01/2024 with worsening shortness of breath and lower extremity edema despite Lasix. The patient states that she noticed her breathing felt labored 3 weeks ago which would improve at times but come back. Over the last 48 hours her shortness of breath has been persistent and even noticeable at rest. Chest x-ray in the ED showed bilateral pleural effusions. CTA chest showed no pulmonary embolism but reaffirmed the large bilateral pleural effusions and showed multiple metastatic lesions of the lung. The patient was put on oxygen and admitted to the Hospitalist service. Pulmonary was consulted for evaluation and management of bilateral large effusions likely causing shortness of breath. Patient denies recent fevers, chills, night sweats. No history of smoking. has an albuterol inhaler and it has helped with shortness of breath in the past but has not helped in the last few days. Patient lives at home with . Allergies Allergy/AdvReac Type Severity Reaction Status Date / Time procaine [From Novocain] Allergy Unknown Unknown Verified 05/19/23 20:22 Home Medications Medication Instructions Recorded Confirmed Type cholecalciferol (vitamin D3) 125 1,000 mcg PO QAM 04/16/23 09/01/24 History mcg (5,000 unit) tablet (Vitamin D3) apixaban 5 mg tablet (Eliquis) 5 mg PO BID 05/02/23 09/01/24 History gabapentin 100 mg capsule 300 mg PO TID 05/02/23 09/01/24 History prochlorperazine maleate 10 mg 10 mg PO Q6H PRN Nausea 05/02/23 09/01/24 History tablet (Compazine) albuterol sulfate 90 mcg/actuation 2 puff inhalation Q4H PRN sob 09/01/24 09/01/24 History aerosol inhaler (Ventolin HFA) hydrochlorothiazide 25 mg tablet 25 mg PO QAM 09/01/24 09/01/24 History ondansetron 8 mg disintegrating 8 mg PO DIRECTED PRN n/v 09/01/24 09/01/24 History tablet potassium chloride 20 mEq 40 meq PO DAILY 09/01/24 09/01/24 History tablet,extended release(part/cryst) Patient History Medical History Pulmonary embolism Sarcoma of right thigh CLL (chronic lymphocytic leukemia) Surgical History History of cataract surgery Bilateral eyes History of hysterectomy Social History Smoking Status: Never smoker Second Hand Exposure: No; Do You Dip or Chew Tobacco: No; Tobacco Cessation Education Requested by Patient: No Hx Alcohol Use: No Hx Substance Use: No Preferred Language: Croatian Communication Ability: Effective Frame Trimmer Required: No Beliefs That Will Affect Care: None Current Living Situation: Spouse Other Information That Helps Us Care for You: No Feels Safe at Home: Yes Safety Concerns: Feels Safe At This Time Assistive Devices: Walker and Wheelchair Review of Systems 2 Review of Systems: All systems reviewed & are unremarkable except as noted in HPI & below Physical Exam 2 Physical Exam: VITALS: Reviewed. WEIGHT/BMI reviewed. GEN: Healthy appearing, well-developed, NAD. PSYCH: Good Judgment. AOx3. Normal memory, mood, and affect. HEENT -Head: NC/AT; -Eyes: PERRL, EOMI. No discharge or redn ess; -Ears: External ears are normal. Normal TMs. -Nose: Normal nares. -Mouth and throat: MMM. Normal gums, muc kristen, palate,. Good dentition. NECK: Supple, with no masses. CV: RRR, no m/r/g. LUNGS: CTAB, no w/r/c. ABD: Soft, NT/ND, NBS, no masses or organomegaly. : N/A SKIN: Warm, well perfused. No skin rashes or abnormal lesions. MSK: No deformities, Normal gait. EXT: No clubbing, cyanosis, or edema. NEURO: Normal muscle strength and tone. No focal deficits. Results & Data Results & Data Vital Signs (Past 12 Hours) Vital Signs Temp Pulse Pulse Resp BP Pulse Ox O2 Del Method 09/02/24 12:17 Nasal Cannula 09/02/24 11:30 36.6 C 98 H 16 101/56 L 95 Room Air 09/02/24 07:38 87 09/02/24 07:30 36.5 C 100 H 18 96/65 L 97 Nasal Cannula 09/02/24 03:13 36.5 C 98 H 18 101/58 L 95 Nasal Cannula O2 Flow Rate 09/02/24 12:17 2 09/02/24 11:30 09/02/24 07:38 09/02/24 07:30 1.5 09/02/24 03:13 Laboratory Results 09/02/24 06:32 09/02/24 06:32 Abnormal Lab Results 09/01/24 09/01/24 09/02/24 14:49 15:06 06:32 WBC 10.34 7.13 RBC 4.16 L 3.82 L Hgb 13.0 11.9 L Hct 40.5 37.5 MCV 97.4 98.2 MCH 31.3 31.2 MCHC 32.1 31.7 L RDW Std Deviation 54.5 H 53.4 H RDW Coeff of Ada 15.1 H 15.0 H Plt Count 565 H 477 H MPV 9.6 9.5 Immature Gran % (Auto) 0.3 0.3 Neut % (Auto) 74.8 68.3 Lymph % (Auto) 13.3 17.1 [place] % (Auto) 10.1 12.2 Eos % (Auto) 0.9 1.4 Baso % (Auto) 0.6 0.7 Neut # (Auto) 7.74 H 4.87 Lymph # (Auto) 1.38 1.22 [place] # (Auto) 1.04 H 0.87 H Eos # (Auto) 0.09 0.10 Baso # (Auto) 0.06 0.05 Immature Gran # (Auto) 0.03 0.02 PT 10.4 INR 1.0 APTT 29 PTT Ratio 1.1 Sodium 140 139 Potassium 3.7 3.6 Chloride 101 103 Carbon Dioxide 32 31 Anion Gap 7 5 BUN 10 7 Creatinine 0.52 L 0.45 L Est Cr Clr Drug Dosing Not Reportable 92.2 eGFR 102.40 106.04 BUN/Creatinine Ratio 19.2 15.6 Glucose 120 H 82 Calcium 8.6 8.0 L Magnesium 2.0 Total Bilirubin 0.4 AST 18 ALT 12 Alkaline Phosphatase 85 Troponin I High Sens 3.2 B-Natriuretic Peptide 26 Total Protein 6.1 Albumin 3.3 L Globulin 2.8 Albumin/Globulin Ratio 1.2 Lipase 14 SARS-CoV-2 (PCR) NEGATIVE Influenza Type A (PCR) Negative Influenza Type B (PCR) Negative RSV (RT-PCR) Negative Diagnostic Findings Chest X-Ray 09/01/24 14:58 XR chest 2V PA/lateral CLINICAL HISTORY: sent by PCP for CT chest COMPARISON STUDY: 05/02/2023 FINDINGS: Since the prior examination, multiple bilateral pulmonary masses have developed. There are bilateral pleural effusions. There is a MediPort catheter with the tip in the near the cavoatrial junction. IMPRESSION: Findings highly suggestive of metastatic lung disease with bilateral pleural effusions. ACT 112: Negative or not required by law. Electronically signed by: Carolina Painting M.D. 09/01/2024 3:57 PM Venous Doppler Study 09/01/24 14:58 EXAM: US venous doppler LE CLINICAL HISTORY: swelling TECHNIQUE: Ultrasound examination of the left lower extremity veins was performed in real time and duplex. One or more of the following were performed: spectral analysis, resistive index, waveform analysis, and pulsed Doppler. COMPARISON: None. FINDINGS: Normal phasic, non-pulsatile, and spontaneous flow is noted in the left common femoral, superficial femoral, popliteal, anterior tibial, posterior tibial, and peroneal veins. Visualized veins of the left lower extremity demonstrate normal compressibility. No sonographic evidence of acute deep vein thrombosis (DVT) is detected in the visualized veins of the lower extremity. Compression and Augmentation: All evaluated veins compress fully with applied transducer pressure. Augmentation of venous flow is noted with distal compression. Additional Findings: Subcutaneous calf edema. IMPRESSION: 1. No sonographic evidence of acute DVT was detected in the left lower extremity at the time of examination. 2. Subcutaneous calf edema. Disclaimer: DVT could be missed early in the disease when the clot burden is minimal. For patients with moderate and high pretest probability of DVT and negative ultrasound, the [employer] clinical guidelines recommend testing with a D-dimer assay or repeat ultrasound in 5-7 days. If symptoms worsen, the Society of Radiologists in Ultrasound recommends repeating the ultrasound even earlier. Electronically signed by Real Hester 09-01-2024 6:37 PM Chest CTA 09/01/24 16:40 Technique: Axial computed tomography images were obtained of the chest after the administration of intravenous contrast according to the CT angiogram protocol Findings: There is no definite sign of pulmonary embolism. There are multiple pulmonary nodules bilaterally, measuring up to 2.5 cm. There is no pneumothorax. There are large bilateral pleural effusions There are enlarged mediastinal lymph nodes, measuring up to 5.4 cm. The thoracic aorta appears unremarkable with no sign of aneurysm or dissection. There is no pericardial effusion. There is a right chest wall port There is a 3.6 cm mass in the left thyroid lobe. The visualized upper abdomen appears unremarkable. No fracture is seen. No focal osseous lesion is evident Impression: 1. No definite sign of pulmonary embolism 2. Multiple pulmonary nodules, likely due to metastatic disease 3. Large bilateral pleural effusions 4. Mediastinal adenopathy, consistent with metastatic disease 5. 3.6 cm thyroid mass. A thyroid ultrasound is recommended for further evaluation ACT 112: Positive. There are findings on this exam that require communication between the performing entity and the patient following Patient Test Result Information Act ([place] ACT 112) guidelines. Electronically signed by Bulmaro Jain 09-01-2024 5:[address] 09/01/24 18:54 Technique: Axial computed tomography images were obtained of the abdomen and pelvis after the administration of intravenous contrast. No prior CT is available for comparison. Findings: The liver is overall of normal size, attenuation, and contour with no sign of cirrhosis or significant fatty infiltration. There is an apparent small 3 mm cyst in the left hepatic lobe. No liver mass lesion is seen. The portal vein is patent. A gallstone is present. There is no definite sign of acute cholecystitis. No bile duct dilatation is noted. The spleen is of normal size. No focal splenic lesion is evident. There is no sign of acute pancreatitis. There is a 9 mm apparent rim calcified cyst in the mid pancreatic body and there is a 1.6 cm apparent cyst in the proximal pancreatic body. There is also a 6 mm apparent cyst in the uncinate process of the pancreas. The pancreatic duct is mildly dilated, measuring up to 4 mm. The adrenal glands appear unremarkable. No definite renal or proximal ureteral calculi are seen on this contrast-enhanced study. There is no hydronephrosis or perinephric stranding. There is a 1.8 cm heterogeneous lesion in the medial aspect of the upper right kidney that could represent a solid mass. There is a 1.7 cm left renal cyst as well as an 8 mm left renal cyst The aorta is of normal caliber. No abdominal adenopathy is seen. The stomach appears normal. There is no sign of small bowel obstruction. There is sigmoid diverticulosis without definite diverticulitis. No free intraperitoneal fluid or air is identified. No distal ureteral or bladder calculi are seen. No bladder mass lesion is evident. The iliac arteries are of normal caliber. No pelvic adenopathy is noted. There are large bilateral pleural effusions. 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 There are multiple chronic bone fragments adjacent to the right acetabulum. There is lumbar scoliosis and degenerative disc disease. There is diffuse body wall edema Impression: 1. 1.8 cm right renal lesion that could represent renal cell carcinoma. Dedicated renal protocol abdominal CT or MRI with and without contrast is recommended for further evaluation 2. No definite sign of metastatic disease or local invasion 3. Large bilateral pleural effusions 4. Cholelithiasis without evidence of acute cholecystitis 5. Hepatic and left renal cysts 6. Several pancreatic cysts, likely benign congenital or post inflammatory cysts but indeterminate in nature. There is also mild pancreatic ductal dilatation. These findings could also be further evaluated by the above recommended follow-up study 7. Diverticulosis without evidence of diverticulitis ACT 112: Positive. There are findings on this exam that require communication between the performing entity and the patient following Patient Test Result Information Act ([place] ACT 112) guidelines. Electronically signed by Bulmaro Jain 09-01-2024 7:46 PM PG Care Time/CCT Total # of Minutes Spent Total Time Spent with Patient: Total time spent is greater than 50% in coordination of care (as documented) at patient's floor/unit and/or counseling patient: Coding Level of Care Code 10004 INT INP/OBS CARE MIN Diagnoses SOB (shortness of breath) R06.02 Bilateral pleural effusion J90 Hypoxia R09.02
[2024-09-02] MEDS: GADOBUTROL 65ML VIAL IV ONE (23:33)
--- NOTE | 2024-09-03 04:19 | Magnetic Resonance Report ---
Exam(s): MRI ABDOMEN W/WO Contrast IV Amt: 5ml of Gatavist EXAM: MR Abdomen Without and With Intravenous Contrast CLINICAL HISTORY: Reason for exam: LLE swelling, ro obstruction/mass, rt renal mass. TECHNIQUE: Multiplanar magnetic resonance images of the abdomen without and with intravenous contrast. CONTRAST: Patient received 5ml of Gadavist of IV contrast COMPARISON: CT scan dated 09/01/2024. FINDINGS: Exam is limited due to motion artifact Lung bases: There are bilateral pleural effusions. . Liver: No mass. Gallbladder and bile ducts: There is a 2.8 cm filling defect within the gallbladder. No ductal dilation. Pancreas: No ductal dilation. There are several nonenhancing lesions within the pancreas, the largest of which measures 1.4 cm in size. Spleen: No splenomegaly. Adrenals: No mass. Kidneys and ureters: No hydronephrosis. There are rounded nonenhancing lesions in the left kidney, the largest of which measures 1. 9 cm in size. There is a 1.7 cm inhomogeneously enhancing lesion noted in the lower pole of the right kidney. Stomach and bowel: The stomach is decompressed. There is air and stool noted in the colon.. Intraperitoneal space: . No significant fluid collection. Soft tissues: There is diffuse soft tissue edema and swelling. Vasculature: No abdominal aortic aneurysm. Lymph nodes: No enlarged lymph nodes. IMPRESSION: Limited exam. There is a 1.7 cm inhomogeneously enhancing lesions in lower pole of the right kidney. This is suspicious for a renal cell carcinoma. There are left renal cyst3. There are cystic structures within the pancreas. This raises the possibility of a process such as IPMN. Cholelithiasis. There are bilateral pleural effusions. Anasarca. Electronically signed by: Сергей Villavicencio MD 09/03/24 04:17 AM
--- NOTE | 2024-09-03 04:26 | Magnetic Resonance Report ---
Exam(s): MRI PELVIS W/WO Contrast EXAM: MR Pelvis Without and With Intravenous Contrast CLINICAL HISTORY: Reason for exam: LLE swelling, ro obstruction/mass. TECHNIQUE: Multiplanar magnetic resonance images of the pelvis without and with intravenous contrast. CONTRAST: Patient received 5 cc of Gadavist contrast intravenously. COMPARISON: CT scan dated 09/01/2024. FINDINGS: Bowel: There is air and stool noted in the colon.. Bladder: Urinary bladder is distended. No filling defects are noted. Ovaries: The ovaries are not visualized.. Uterus/cervix: The patient appears to be status post hysterectomy.. Bones/joints: Patient is status post amputation of the right femur.. Soft tissues: There is diffuse soft tissue edema noted in the soft tissues. There is signal abnormality noted in the right iliopsoas muscle, the right gluteus minimus muscle and the right gluteus medius muscle.. Vasculature: Unremarkable. Lymph nodes: No enlarged lymph nodes. IMPRESSION: Anasarca. There is signal abnormality noted in the right iliopsoas muscle, the right gluteus minimus muscle and the right gluteus medius muscle.. This may represent myositis and/or partial tear. Electronically signed by: Сергей Villavicencio MD 09/03/24 04:25 AM
[2024-09-03 07:48] LABS: Hematocrit (blood only) 35.4 % (37.0-47.0); Hemoglobin 11.6 g/dl (12.0-16.0); Mean Corpuscular Hemoglobin 31.9 pg (25.0-34.0); Mean Corpuscular Volume 97.3 fL (80.0-100.0); Platelet Count 461 K/uL (130-400); RDW Standard Deviation 52.3 fL (36.4-46.3); Red Blood Count 3.64 M/uL (4.20-5.40); White Blood Count 8.22 K/ul (4.8-10.8)
[2024-09-03 08:04] LABS: Anion Gap 4.0 (3-11); Blood Urea Nitrogen 7.0 mg/dl (6-23); Calcium 7.8 mg/dl (8.6-10.3); Carbon Dioxide 35.0 mmol/L (21-32); Chloride 99.0 mmol/L (98-107); Creatinine Clr Calc Pharmacy 86.2 ml/min; Glucose 91.0 mg/dl (70-99(Fasting)); Magnesium 2.0 mg/dl (1.7-2.4); Potassium 3.3 mmol/L (3.5-5.1); Sodium 138.0 mmol/L (136-145)
--- NOTE | 2024-09-03 11:17 | Orthopedic Consultation ---
Date of Consultation September 03, 2024 Assessment & Plan (1) Abnormal MRI, musculoskeletal: Patient seen in conjunction with Dr. Alvarado. Abnormalities identified on MRI are likely postsurgical in nature. The muscles in question generally attached to the femur which was removed 1.5 years ago. This is more likely an incidental finding. I had pelvic MRI images pushed to [facility] and coordinated with Dr. Ross hospitalist taking care of the patient here. Patient does not require anything emergent related to these findings, but we would like to have the patient's surgeon Dr. Hdez review the images while she is admitted. Dr. Ross was able to coordinate with Dr. Hdez who reviewed the MRI images and did not feel that any further orthopedic care was indicated. She does not require a scheduled follow up with him. Orthopedics will sign off for now. Please let us know if any further assistance can be provided. Supervising Physician Co-Signing Physician Notes I, Dr. Alvarado, saw and examined the patient. I discussed the management with my PA. I reviewed my PAs note and agree with the documented findings and attest to completing the substantive portion of medical decision making and plan of care I developed. 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, history of bilateral metastatic lung nodules, osteoporosis, CLL, history of blood clots, who presented to the emergency department 2 days ago with left leg edema and shortness of breath. Orthopedics was consulted due to abnormalities identified on the pelvic MRI demonstrating signal abnormality in the right iliopsoas muscle, right gluteus minimus muscle, and right gluteus medius muscle. Radiologist thought this could represent myositis and or partial tear. The pelvic MRI had been ordered for further evaluation of the patient's edema. Patient reports no real changes in the right pelvis region, and has a history of right hip disarticulation, due to right thigh sarcoma. She was last seen by Dr. Hdez in May 2024. States that she experiences mild discomfort in the right pelvis at times over the past 4 to 5 months which she attributes to inevitable pressure on the area when seated. She denies any falls or new injuries. Patient generally is mobile in a wheelchair but will also utilize a walker and hop on the left lower extremity. Allergies Allergy/AdvReac Type Severity Reaction Status Date / Time procaine [From Novocain] Allergy Unknown Unknown Verified 05/19/23 20:22 Home Medications Medication Instructions Recorded Confirmed Type cholecalciferol (vitamin D3) 125 1,000 mcg PO QAM 04/16/23 09/01/24 History mcg (5,000 unit) tablet (Vitamin D3) apixaban 5 mg tablet (Eliquis) 5 mg PO BID 05/02/23 09/01/24 History gabapentin 100 mg capsule 300 mg PO TID 05/02/23 09/01/24 History prochlorperazine maleate 10 mg 10 mg PO Q6H PRN Nausea 05/02/23 09/01/24 History tablet (Compazine) albuterol sulfate 90 mcg/actuation 2 puff inhalation Q4H PRN sob 09/01/24 09/01/24 History aerosol inhaler (Ventolin HFA) hydrochlorothiazide 25 mg tablet 25 mg PO QAM 09/01/24 09/01/24 History ondansetron 8 mg disintegrating 8 mg PO DIRECTED PRN n/v 09/01/24 09/01/24 History tablet potassium chloride 20 mEq 40 meq PO DAILY 09/01/24 09/01/24 History tablet,extended release(part/cryst) Patient History Medical History Pulmonary embolism Sarcoma of right thigh CLL (chronic lymphocytic leukemia) Surgical History History of cataract surgery Bilateral eyes History of hysterectomy Social History Smoking Status: Never smoker Second Hand Exposure: No; Do You Dip or Chew Tobacco: No; Tobacco Cessation Education Requested by Patient: No Hx Alcohol Use: No Hx Substance Use: No Preferred Language: Arabic Communication Ability: Effective Goat Farmer Required: No Beliefs That Will Affect Care: None Current Living Situation: Spouse Other Information That Helps Us Care for You: No Feels Safe at Home: Yes Safety Concerns: Feels Safe At This Time Assistive Devices: Walker and Wheelchair Physical Exam Physical Exam: Resting comfortably in bed. Chronically ill-appearing but has a positive demeanor and very pleasant. Musculoskeletal: Status post right hip disarticulation. Surgical scar in this area is well- healed with no soft tissue edema, redness, or drainage in the surrounding pelvic region. No tenderness to palpation in the surrounding soft tissues. Skin is warm. Neurologic: Decreased sensation to light touch distal to the incision in the right pelvic region. Results & Data Vital Signs (Past 12 Hours) Vital Signs Temp Pulse Pulse Resp BP Pulse Ox O2 Del Method 09/03/24 08:31 95/61 L 09/03/24 08:29 97.9 F 93 H 20 91/58 L 93 Room Air 09/03/24 07:49 91 H 09/03/24 03:19 97.7 F 58 L 16 95/58 L 92 Nasal Cannula 09/02/24 23:32 97.7 F 97 H 16 93/54 L 92 Nasal Cannula Laboratory Results 09/03/24 07:25 WBC 8.22 RBC 3.64 L Hgb 11.6 L Hct 35.4 L MCV 97.3 MCH 31.9 MCHC 32.8 RDW Std Deviation 52.3 H RDW Coeff of Ada 14.7 H Plt Count 461 H MPV 9.6 Sodium 138 Potassium 3.3 L Chloride 99 Carbon Dioxide 35 H Anion Gap 4 BUN 7 Creatinine 0.47 L Est Cr Clr Drug Dosing 86.2 eGFR 104.93 BUN/Creatinine Ratio 14.9 Glucose 91 Calcium 7.8 L Phosphorus 3.9 Magnesium 2.0 Diagnostic Findings Pelvis MRI 09/02/24 14:34 Exam(s): MRI PELVIS W/WO Contrast EXAM: MR Pelvis Without and With Intravenous Contrast CLINICAL HISTORY: Reason for exam: LLE swelling, ro obstruction/mass. TECHNIQUE: Multiplanar magnetic resonance images of the pelvis without and with intravenous contrast. CONTRAST: Patient received 5 cc of Gadavist contrast intravenously. COMPARISON: CT scan dated 09/01/2024. FINDINGS: Bowel: There is air and stool noted in the colon.. Bladder: Urinary bladder is distended. No filling defects are noted. Ovaries: The ovaries are not visualized.. Uterus/cervix: The patient appears to be status post hysterectomy.. Bones/joints: Patient is status post amputation of the right femur.. Soft tissues: There is diffuse soft tissue edema noted in the soft tissues. There is signal abnormality noted in the right iliopsoas muscle, the right gluteus minimus muscle and the right gluteus medius muscle.. Vasculature: Unremarkable. Lymph nodes: No enlarged lymph nodes. IMPRESSION: Anasarca. There is signal abnormality noted in the right iliopsoas muscle, the right gluteus minimus muscle and the right gluteus medius muscle.. This may represent myositis and/or partial tear. Electronically signed by: Сергей Villavicencio MD 09/03/24 04:25 AM
--- NOTE | 2024-09-03 14:48 | Procedure Note ---
Procedure Note Date of Service September 03, 2024 Procedure: Diagnostic therapeutic ultrasound-guided right catheter thoracentesis [employer] Analyst: HALLE Munguia Supervising physician: Dr. Alexis Gutierrez MD Indication: Right Pleural effusion Consent: Signed by patient and verified with time out prior to procedure Anesthesia: 1% lidocaine without epinephrine local. Procedure: Consent was verified and time out performed. Appropriate imaging studies were reviewed prior to the procedure.Patient was placed in a seated position and limited thoracic ultrasound was performed of the right chest. See separate imaging. Appropriate site above the diaphragm for thoracentesis was selected. The skin was prepped and draped in normal sterile fashion. Lidocaine was used for local analgesia. Fluid was aspirated via the finder needle. A small skin naseem was made with the scalpel and the catheter over the needle apparatus was advanced over the rib into the pleural space. Using the syringe one-way valve system, a total of 1200 mL's of serous/hector fluid was removed. Procedure was terminated due to coughing.The catheter was removed and observed to be intact. A sterile dressing was applied. Post procedure chest x-ray was ordered. Fluid was sent for labs, culture and cytology. Complications: None Blood loss: 0ml Addendum: 3 PM: Chest x-ray postprocedure was obtained. There is a right-sided pneumothorax with shift of mediastinal structures. No significant effusion on the left. Discussed with patient. She is experiencing some increasing shortness of breath. Chest tube was warranted. Pigtail catheter placed. Please refer to separate procedure note. [facility] Procedure Codes (Charges) Pulmonary/Thoracic Procedure 1: Pulmonary and Thoracic: 52673 Thoracentesis w/o imaging Coding CPT Codes Pulmonary/Thoracic - Pulmonary and Thoracic: 17019 Thoracentesis w/o imaging ([id number]) Additional Codes Date of Service (PG.SURGERY)
--- NOTE | 2024-09-03 14:49 | Procedure Note ---
Procedure Note Date of Service September 03, 2024 Procedure: Diagnostic therapeutic ultrasound-guided catheter thoracentesis, left Hand Outside Cutter: Dr. Alexis Gutierrez Indication: Pleural effusion Consent: Signed by patient and verified with timeout prior to procedure Anesthesia: 8 mL's 1% lidocaine without epinephrine local. Procedure: Consent was verified and timeout performed. Appropriate imaging studies were reviewed prior to the procedure. Patient was placed in a seated position and limited thoracic ultrasound was performed of the left chest. A moderate size left effusion was noted with compressive atelectasis. Site appropriate for thoracentesis was selected. The skin was prepped and draped in normal sterile fashion. Lidocaine was used for local analgesia under direct ultrasound visualization. Fluid was aspirated via the finder needle under direct ultrasound visualization. A small skin naseem was made with the scalpel and the catheter over the needle apparatus was advanced over the rib into the pleural space. Using the syringe one-way valve system, a total of 1100 mL's of yellow clear fluid was removed. Procedure was terminated due to patient coughing. The catheter was removed and observed to be intact. A sterile dressing was applied. Post procedure chest x-ray was ordered. Fluid was sent for cytology, cell count differential, Gram stain and culture, LDH, glucose, and total protein as well as pH. The patient tolerated the procedure well without obvious complication [facility] [place] Procedure Codes (Charges) Pulmonary/Thoracic Procedure 1: Pulmonary and Thoracic: 88775 Thoracentesis w imaging Coding CPT Codes Pulmonary/Thoracic - Pulmonary and Thoracic: 39169 Thoracentesis w imaging ([id number]) Additional Codes Date of Service (PG.SURGERY)
--- NOTE | 2024-09-03 14:51 | Pulmonology Progress Note ---
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 CT chest and CXR showed bilateral large pleural effusions. Recommendations: Bilateral pleural effusions possibly malignant v. other We will plan on pursuing bilateral thoracenteses today. If the chest x-ray looks okay from a pulmonary perspective the patient can be dismissed home. Fluid will be sent for cytology. She can follow-up with her outpatient medical oncologist. Okay to restart anticoagulation tomorrow Dyspnea; hypoxia Recommend assessing for supplemental oxygen prior to discharge. I would be happy to follow-up this patient in the outpatient setting should her effusions reaccumulate or she has additional respiratory issues. She was given my contact information. Admission and Anticipated Discharge Date Admission Date: September 01, 2024 Subjective Patient seen and examined. EMR reviewed. The patient is awake alert and conversant sitting up in a chair. Her breathing is about the same. She is agreeable to thoracentesis. We discussed the risks of bilateral procedures. She would like to pursue this option even given its increased risk as she would like to get out of the hospital as soon as possible. She denies any fevers chills night sweats or other constitutional symptoms Review of Systems 2 Review of Systems: All systems reviewed & are unremarkable except as noted in Subjective Physical Exam 2 Constitutional: WD/WN, vitals as above Neck: trachea midline, no thyromegaly Respiratory: no respiratory distress, no labored breathing, no cough and not tachypneic Auscultation: + diminished lung sounds; no wheezes Cardiovascular: RRR, no murmur, no edema Gastrointestinal (Abdomen): normal bowel sounds, soft, nontender, no hepatosplenomegaly Musculoskeletal: Extremities: extremities normal to inspection Skin: no rashes, warm and dry Neurologic: Nonfocal exam Lymphatic: no cervical lymphadenopathy Results & Data Results & Data Vital Signs (Past 12 Hours) Vital Signs Temp Pulse Pulse Resp BP Pulse Ox O2 Del Method 09/03/24 10:52 36 C L 103 H 21 100/64 96 Room Air 09/03/24 08:58 Nasal Cannula 09/03/24 08:31 95/61 L 09/03/24 08:29 36.6 C 93 H 20 91/58 L 93 Room Air 09/03/24 07:49 91 H 09/03/24 03:19 36.5 C 58 L 16 95/58 L 92 Nasal Cannula O2 Flow Rate 09/03/24 10:52 09/03/24 08:58 2 09/03/24 08:31 09/03/24 08:29 09/03/24 07:49 09/03/24 03:19 Laboratory Results 09/03/24 07:25 09/03/24 07:25 PG Care Time/CCT Total # of Minutes Spent Total Time Spent with Patient: Total time spent is greater than 50% in coordination of care (as documented) at patient's floor/unit and/or counseling patient: Coding Level of Care Code 40159 SUB INP/OBS CARE 2/35MIN Diagnoses SOB (shortness of breath) R06.02 Bilateral pleural effusion J90 Hypoxia R09.02
--- NOTE | 2024-09-03 15:15 | XRay Report ---
XR chest 1V portable CLINICAL HISTORY: S/P Thoracentesis COMPARISON STUDY: 09/01/2024 FINDINGS: Stable right chest port. Heart size and pulmonary vasculature are normal. Multiple scattere d bilateral pulmonary nodules are again seen. There is interval resolution of the prior pleural effus ions. There is a moderate right pneumothorax with mild shift of the heart and mediastinum to the righ t. There is a small left apical pneumothorax with 1.5 cm pleural separation at the left apex. IMPRESSION: Bilateral pneumothoraces, right greater than left. There is shift of the heart and media stinum to the left suggesting tension phenomenon on the right. Radiology department is confirming receipt of report. ACT 112: Negative or not required by law. Electronically signed by: Kb Powell M.D. 09/03/2024 3:13 PM
--- NOTE | 2024-09-03 15:37 | Procedure Note ---
Procedure Note Date of Service September 03, 2024 Procedure: 14 Finnish pigtail catheter placement Indication: Iatrogenic pneumothorax on the right Consent risk and benefits were discussed with the patient. She agreed. Piercing Machine Operator Dr. Gutierrez Estimated blood loss: Less than 5 mL Anesthesia: 5 mL 1% lidocaine without epinephrine locally. Procedure: Patient has a history of diffuse metastatic pleomorphic sarcoma. She underwent bilateral thoracenteses today. Left side looks okay however she developed a right-sided pneumothorax with some tension physiology. Pigtail catheter was warranted. The patient is agreeable to proceed. Patient was placed in a seated upright position. The right inferior axillary area was cleaned and draped in normal sterile fashion. An area anterior to the trapezius in the posterior axillary line was identified. Ribs were easily palpable. The skin was anesthetized with lidocaine. Air was able to be aspirated with the finder needle. Finder needle was removed. A small skin naseem was made with a scalpel. An 18-gauge needle was then advanced on a similar line until air was able to be aspirated. The syringe was removed leaving the needle in place. A wire was then passed through the needle into the pleural space. Needle was removed leaving the wire in place. A 14 Finnish dilator was then passed with ease. The dilator was removed leaving the wire in place and an 14 Finnish pneumothorax catheter was then advanced over the wire into the pleural space. The wire was removed. Stopcock was placed on the catheter and it was attached to a Pleur-evac. The patient had a 3+ airleak for about 20 seconds which then decreased down to an intermittent 1+ airleak. The tube was secured using the skater catheter fixation system and 2 Tegaderms. He remained on 20 cm of wall suction. Repeat chest x-ray is pending. The patient tolerated the procedure well. [facility] [place] Procedure Codes (Charges) Pulmonary/Thoracic Procedure 1: Pulmonary and Thoracic: 16705 Tube thoracostomy Coding CPT Codes Pulmonary/Thoracic - Pulmonary and Thoracic: 00518 Tube thoracostomy ([id number]) Additional Codes Date of Service (PG.SURGERY)
--- NOTE | 2024-09-03 16:01 | Hospitalist Progress Note ---
Date of Service September 03, 2024 Assessment & Plan (1) SOB (shortness of breath): Plan: 64 yo F w/ PMH of saddle embolus of pulmonary artery, right lower extremity DVT, moderate degree malnutrition, GERD, osteoporosis, CLL, anemia of chronic disease, anxiety, 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 Patient is having left leg edema for last 3 weeks. She took 4 to 5 days of Lasix but did not help. And she was getting short of breath and last night the shortness of breath got worse and was advised to come to the hospital. She complains of cough w/ occ yellow sputum, denies fever, reports runny nose for couple of weeks. Last chemo was about 4 wks ago [employer] MACHINE. Currently the plan to change her chemo and to start new chemo on coming Friday as per the patient. She is being managed for the following: Shortness of breath Likely malignant bilateral pleural effusion Metastatic lung disease Pt comes in w/ worsening sob, trialed lasix at home w/ no improvement. Trop, BNP wnl. ECHO w/ EF of 60-65%, LV systolic fxn nl, no RWMA. b/l large pl eff noted. CTA chest neg for PE, has metastatic pul nodules and reveals 3.6 cm left thyroid mass. c/w IV lasix 20 mg iv bid [hold hydrochlorothiazide while on Lasix], FR 1800 ml. Pulm on board, bilateral thoracentesis 09/03, follow studies. Thoracentesis complicated with right-sided pneumothorax, pigtail catheter placement 09/03. Likely resume anticoagulation from tomorrow with pulmonology clearance. Left lower extremity edema: No DVT on LLE venous doppler, c/w lasix as above. No heart failure, CT venogram abd/pelvis not showing any obstruction to explain cause for LLE/pelvis edema. d/w pt's OP oncology, plan to get MRI pelvis. MRI abdomen pelvis with no compressive pathology. Abnormal MRI pelvis/likely postoperative changes to the muscles: Discussed with patient's orthopedic at [facility], likely postoperative changes and no acute need for orthopedic attention. Pt doesn't have pain or any pelvic discomfort. Left thyroid mass [3.6 cm] and right renal lesion [1.8 cm]: Noted on imagings while inpatient, discussed with Dr. Wilson 09/02, plan to follow-up & do follow-up test upon discharge. History of saddle pulm embolism in March 2023 and DVT: Continue Eliquis History of CLL: Under observation, f/u w/ onc on dc. 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 Follow-up Multiple thyroid nodules: Following with endocrinology DVT prophylaxis: On Eliquis Disposition: Telemetry Full code. Admission and Anticipated Discharge Date Admission Date: September 01, 2024 Subjective Patient was seen and examined at bedside. Patient was sitting up in chair, on 2 L oxygen via nasal cannula, NAD. Patient's /other fam members at bedside was also updated on plan of care. Pt reports breathing about the same, denies any ROS. Pt's MRI abd and pelvis findings were discussed with them including rt renal lesion and likely post op changes at right pelvis. Pt reports improving LLE swelling. Physical Exam Physical Exam: General-Not in distress, on 2L NC O2 Head- atraumatic Eyes- PERRL, EOMI. ENT- oropharynx clear Neck- supple, no JVD no bruits appreciated Lungs- clear to auscultation no wheezing or crackles, decreased bb sounds. Heart- regular rate and rhythm rhythm; no murmur, no gallop. 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 Neuro- alert, oriented PERRL, EOMI; no facial palsy; no dysarthria; obeys simple commands Results & Data Results & Data Vital Signs (Past 12 Hours) Vital Signs Temp Pulse Pulse Resp BP Pulse Ox O2 Del Method 09/03/24 10:52 36 C L 103 H 21 100/64 96 Room Air 09/03/24 08:58 Nasal Cannula 09/03/24 08:31 95/61 L 09/03/24 08:29 36.6 C 93 H 20 91/58 L 93 Room Air 09/03/24 07:49 91 H O2 Flow Rate 09/03/24 10:52 09/03/24 08:58 2 09/03/24 08:31 09/03/24 08:29 09/03/24 07:49
--- NOTE | 2024-09-03 16:03 | XRay Report ---
XR chest 1V portable CLINICAL HISTORY: chest tube COMPARISON STUDY: Earlier today FINDINGS: There is an interval right sided chest tube with trace residual right pneumothorax, signifi cantly improved. There is mild residual shift of the heart and mediastinum to the left, improved. Sma ll left apical pneumothorax is stable. Stable scattered pulmonary nodules. There are trace pleural ef fusions and minimal atelectasis in the lung bases. IMPRESSION: 1. Significant interval improvement in the right pneumothorax with trace residual. 2. Stable small left apical pneumothorax. ACT 112: Negative or not required by law. Electronically signed by: Kb Powell M.D. 09/03/2024 4:00 PM
[2024-09-03 16:11] LABS: Appearance Pleural Fluid Clear; Color Pleural Fluid Yellow; RBC Pleural Fluid Auto < 2000 /uL; Source Pleural Fluid Left Lung; WBC Pleural Fluid Auto 436 /uL
[2024-09-03] MEDS: ACETAMINOPHEN 325 MG TAB PO PRN (18:12)
[2024-09-04 06:08] LABS: Hematocrit (blood only) 32.8 % (37.0-47.0); Hemoglobin 10.9 g/dl (12.0-16.0); Mean Corpuscular Hemoglobin 32.1 pg (25.0-34.0); Mean Corpuscular Volume 96.5 fL (80.0-100.0); Platelet Count 407 K/uL (130-400); RDW Standard Deviation 51.6 fL (36.4-46.3); Red Blood Count 3.40 M/uL (4.20-5.40); White Blood Count 10.17 K/ul (4.8-10.8)
[2024-09-04 06:34] LABS: Anion Gap 5.0 (3-11); Blood Urea Nitrogen 8.0 mg/dl (6-23); Calcium 7.8 mg/dl (8.6-10.3); Carbon Dioxide 34.0 mmol/L (21-32); Chloride 98.0 mmol/L (98-107); Creatinine Clr Calc Pharmacy 93.8 ml/min; Glucose 99.0 mg/dl (70-99(Fasting)); Magnesium 1.9 mg/dl (1.7-2.4); Potassium 3.3 mmol/L (3.5-5.1); Sodium 137.0 mmol/L (136-145)
--- NOTE | 2024-09-04 07:52 | Pulmonology Progress Note ---
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 She developed an iatrogenic pneumothorax on the right with pigtail catheter placement which appears resolved this morning with the tube on suction. Recommendations: 1. Pleural effusions: Cytology pending. Fluid was not particularly inflammatory. Will see how she responds. If the effusions recur, consideration for outpatient placement of Pleurx catheter might be appropriate. 2. Hypoxemia: Wean oxygen as tolerated. 3. Iatrogenic pneumothorax on the right: Chest x-ray today looks better. Clamping trial will be pursued. Will repeat chest x-ray in about 2 to 3 hours. If the lung remains up, the chest tube can be discontinued and the patient potentially dismissed home. Would hold anticoagulation for now The above recommendations and plan were discussed with the patient at the bedside. Questions were answered to the best my ability. She expressed understanding and is in agreement with the plan as outlined Admission and Anticipated Discharge Date Admission Date: September 01, 2024 Subjective Patient seen and examined. EMR reviewed. Patient is doing well clinically. She is having some slight discomfort at the chest tube insertion site but overall states her breathing is better. She is not coughing at all. She is tolerating a diet. No sputum production. No fevers chills or night sweats. No new respiratory concerns today Review of Systems 2 Review of Systems: All systems reviewed & are unremarkable except as noted in Subjective Physical Exam 2 Physical Exam: General-Not in distress, on 2L NC O2 Head- atraumatic Eyes- PERRL, EOMI. ENT- oropharynx clear Neck- supple, no JVD no bruits appreciated Lungs- clear to auscultation no wheezing or crackles, decreased bb sounds. Heart- regular rate and rhythm rhythm; no murmur, no gallop. 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 Neuro- alert, oriented PERRL, EOMI; no facial palsy; no dysarthria; obeys simple commands Results & Data Results & Data Vital Signs (Past 12 Hours) Vital Signs Temp Pulse Pulse Resp BP Pulse Ox O2 Del Method 09/04/24 07:28 36.8 C 75 19 94/54 L 98 Nasal Cannula 09/04/24 02:46 36.4 C L 74 21 94/59 L 97 Nasal Cannula 09/03/24 22:58 36.4 C L 84 16 86/55 L 97 Nasal Cannula 09/03/24 22:34 78 09/03/24 22:24 Nasal Cannula Laboratory Results 09/04/24 05:54 09/04/24 05:54 Pleural fluid studies: Cytology from left to right pending Cultures no growth to date, Gram stain with white blood cells no organisms Differential: Pending pH 7.59 Total protein 3.0 LDH 125 Glucose 125 Diagnostic Findings Chest x-ray this morning was independently reviewed. Chest tubes in good position. No pneumothorax identified. Mediastinal shift is resolved. PG Care Time/CCT Total # of Minutes Spent Total Time Spent with Patient: Total time spent is greater than 50% in coordination of care (as documented) at patient's floor/unit and/or counseling patient: Coding Level of Care Code 07236 SUB INP/OBS CARE 2/35MIN Diagnoses SOB (shortness of breath) R06.02 Bilateral pleural effusion J90 Hypoxia R09.02 Pneumothorax on right J93.9
--- NOTE | 2024-09-04 08:18 | XRay Report ---
Clinical History: Pneumothorax Technique: A frontal view of the chest was obtained Comparison is made to prior examination dated 09/01/2024 Findings: A small pneumothorax is seen bilaterally, approximately 5% on the right and 10% of the left. There is a right-sided chest tube. There are slightly worsened bilateral upper lobe infiltrates, concerning for pneumonia. There are apparent bilateral pulmonary nodules. The heart size is within normal limits. There are small bilateral pleural effusions. There is suspected emphysema There is a right chest wall port with a carson SVC Impression: 1. New left pneumothorax, approximately 10% in size 2. New small right pneumothorax with a new right-sided chest tube in place, approximately 5% in size 3. Suspected combination of slightly worsened pneumonia and multiple pulmonary nodules, which could be due to metastatic disease 4. Unchanged small bilateral pleural effusions ACT 112: Positive. There are findings on this exam that require communication between the performing entity and the patient following Patient Test Result Information Act ([place] ACT 112) guidelines. Electronically signed by Bulmaro Jain 09-04-2024 08:16 AM
[2024-09-04 09:16] LABS: Lymphocytes, Fluid 30 %; Mono,Macrophage,Mesothelial 58 %; Neutrophils, Fluid 12 %
--- NOTE | 2024-09-04 11:29 | XRay Report ---
Technique: A frontal view of the chest was obtained Comparison is made to the prior examination obtained earlier today Findings: There is a moderate sized right pneumothorax, increased in size. A right-sided chest tube is again seen. There is an unchanged small left pneumothorax There are unchanged nodular and patchy alveolar opacities bilaterally. The heart size is within normal limits. There are small bilateral pleural effusions There is a right chest wall port with its tip at the SVC Impression: 1. Moderate sized right pneumothorax, increased in size. A right-sided chest tube remains in place 2. Unchanged small left pneumothorax 3. Unchanged pulmonary infiltrates and nodules 4. Unchanged small bilateral pleural effusions ACT 112: Positive. There are findings on this exam that require communication between the performing entity and the patient following Patient Test Result Information Act ([place] ACT 112) guidelines. Electronically signed by Bulmaro Jain 09-04-2024 11:29 AM
--- NOTE | 2024-09-04 13:12 | Hospitalist Progress Note ---
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 Patient is having left leg edema for last 3 weeks. She took 4 to 5 days of Lasix but did not help. And she was getting short of breath and last night the shortness of breath got worse and was advised to come to the hospital. She complains of cough w/ occ yellow sputum, denies fever, reports runny nose for couple of weeks. Last chemo was about 4 wks ago [facility]. Currently the plan to change her chemo and to start new chemo on coming Friday as per the patient. She is being managed for the following: Shortness of breath Likely malignant bilateral pleural effusion Metastatic lung disease Pt comes in w/ worsening sob, trialed lasix at home w/ no improvement. Trop, BNP wnl. ECHO w/ EF of 60-65%, LV systolic fxn nl, no RWMA. b/l large pl eff noted. CTA chest neg for PE, has metastatic pul nodules and reveals 3.6 cm left thyroid mass. Pulm on board, bilateral thoracentesis 09/03, follow studies. Thoracentesis complicated with right-sided pneumothorax, pigtail catheter placement 09/03. clamp trial done on 09/04; recurrence of right-sided pneumothorax; plan to continue pigtail catheter today. Hold lasix for now. Left lower extremity edema: No DVT on LLE venous doppler, treated with iv lasix. No heart failure, CT venogram abd/pelvis not showing any obstruction to explain cause for LLE/pelvis edema. d/w pt's OP oncology, plan to get MRI pelvis. MRI abdomen pelvis with no compressive pathology. Abnormal MRI pelvis/likely postoperative changes to the muscles: Discussed with patient's orthopedic at [facility], likely postoperative changes and no acute need for orthopedic attention. Pt doesn't have pain or any pelvic dis comfort. Left thyroid mass [3.6 cm] and right renal lesion [1.8 cm]: Noted on imagings while inpatient, discussed with Dr. Wilson 09/02, plan to follow-up & do follow-up test upon discharge. History of saddle pulm embolism in March 2023 and DVT: yeni currently on hold History of CLL: Under observation, f/u w/ onc on dc. 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 Follow-up Multiple thyroid nodules: Following with endocrinology DVT prophylaxis: On [facility] Disposition: Telemetry Full code. Time spent evaluating patient, direct bedside care, chart review, placing orders, interpretation of diagnostic studies, discussion with consultants, patient, and family members, as well as other required patient management activities is 50 minutes Please note the above document was generated using voice recognition software. It may contain grammatical, syntax or spelling errors. Any formal questions or concerns about the content, text or information contained within the body of this dictation should be directly addressed to the provider for clarification Admission and Anticipated Discharge Date Admission Date: September 01, 2024 Subjective Patient seen and examined at bedside. She reports that she feels much better compared to previous day. No shortness of breath. No chest pain. Review of Systems Review of Systems: All systems reviewed & are unremarkable except as noted in Subjective Physical Exam Physical Exam: General-mortable Head- atraumatic Eyes- PERRL, EOMI. ENT- oropharynx clear Neck- supple, no JVD no bruits appreciated Lungs- Chest tube in place on the right side; decreased breath sound at right lung base field Heart- regular rate and rhythm rhythm; no murmur, no gallop. 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 Neuro- alert, oriented PERRL, EOMI; no facial palsy; no dysarthria; obeys simple commands Results & Data Results & Data Vital Signs (Past 12 Hours) Vital Signs Temp Pulse Resp BP Pulse Ox O2 Del Method 09/04/24 11:28 36.8 C 81 19 92/58 L 98 Nasal Cannula 09/04/24 11:27 Nasal Cannula 09/04/24 07:28 36.8 C 75 19 94/54 L 98 Nasal Cannula 09/04/24 02:46 36.4 C L 74 21 94/59 L 97 Nasal Cannula
[2024-09-05 06:12] LABS: Hematocrit (blood only) 33.1 % (37.0-47.0); Hemoglobin 10.8 g/dl (12.0-16.0); Immature Granulocytes # (auto) 0.03 K/uL (0.01-0.20); Immature Granulocytes % (auto) 0.3 %; Mean Corpuscular Hemoglobin 31.9 pg (25.0-34.0); Mean Corpuscular Volume 97.6 fL (80.0-100.0); Platelet Count 387 K/uL (130-400); RDW Standard Deviation 52.7 fL (36.4-46.3); Red Blood Count 3.39 M/uL (4.20-5.40); White Blood Count 9.42 K/ul (4.8-10.8)
[2024-09-05 06:45] LABS: Anion Gap 4.0 (3-11); Blood Urea Nitrogen 7.0 mg/dl (6-23); Calcium 8.1 mg/dl (8.6-10.3); Carbon Dioxide 34.0 mmol/L (21-32); Chloride 100.0 mmol/L (98-107); Creatinine Clr Calc Pharmacy 96.1 ml/min; Glucose 97.0 mg/dl (70-99(Fasting)); Potassium 3.6 mmol/L (3.5-5.1); Sodium 138.0 mmol/L (136-145)
--- NOTE | 2024-09-05 07:42 | Pulmonology Progress Note ---
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 She developed an iatrogenic pneumothorax on the right with pigtail catheter placement Friday. She failed clamping trial with recurrence of the pneumothorax yesterday and this morning has an intermittent with 1-2+ airleak. The left apical pneumothorax is stable. Recommendations: 1. Pleural effusions: Cytology pending. Fluid was not particularly inflammatory. Will see how she responds. If the effusions recur, consideration for outpatient placement of Pleurx catheter might be appropriate. 2. Hypoxemia: Wean oxygen as tolerated. 3. Iatrogenic pneumothorax. Small air leak this morning so we will continue tube to suction. The left apical pneumothorax is stable and nonprogressive so we will hold on intervening for now. If the patient fails conservative therapy over the next week or so could consider more aggressive interventions. Could also consider potentially discharging the patient home with a Heimlich valve with outpatient follow-up if deemed appropriate. The above recommendations and plan were discussed with the patient and spouse at the bedside. Questions were answered to the best my ability. They expressed understanding and is in agreement with the plan as outlined Admission and Anticipated Discharge Date Admission Date: September 01, 2024 Subjective Patient seen and examined. MR whitaker. Discussed with patient and significant other at bedside. Patient is sitting up at the bedside. She feels she is doing well clinically. She is not complaining of any cough. No shortness of breath or chest pain other than at the site of the pneumothorax catheter. This is well-controlled with Tylenol. No fevers chills night sweats or other constitutional symptoms Review of Systems 2 Review of Systems: All systems reviewed & are unremarkable except as noted in Subjective Physical Exam 2 Constitutional: WD/WN, vitals as above Neck: trachea midline, no thyromegaly Respiratory: no respiratory distress, no labored breathing, no cough and not tachypneic Auscultation: + diminished lung sounds; no wheezes Drain site clean dry and intact. No crepitus Intermittent 1+ airleak on the drain at 20 cm wall suction Cardiovascular: RRR, no murmur, no edema Gastrointestinal (Abdomen): normal bowel sounds, soft, nontender, no hepatosplenomegaly Musculoskeletal: Extremities: extremities normal to inspection Skin: no rashes, warm and dry Lymphatic: no cervical lymphadenopathy Results & Data Results & Data Vital Signs (Past 12 Hours) Vital Signs Temp Pulse Pulse Resp BP Pulse Ox O2 Del Method 09/05/24 07:17 Nasal Cannula 09/05/24 07:09 80 09/05/24 03:46 36.3 C L 84 16 82/51 L 97 Nasal Cannula 09/05/24 00:43 87 09/04/24 23:21 36.5 C 90 16 116/63 96 Nasal Cannula 09/04/24 21:36 Room Air 09/04/24 21:33 95 Room Air 09/04/24 21:32 93 Room Air O2 Flow Rate 09/05/24 07:17 1 09/05/24 07:09 09/05/24 03:46 1 09/05/24 00:43 09/04/24 23:21 1 09/04/24 21:36 09/04/24 21:33 1 09/04/24 21:32 Laboratory Results 09/05/24 05:24 09/05/24 05:24 Oral fluid cytology pending Diagnostic Findings Chest x-ray from today was independently reviewed. The right-sided pneumothorax catheter is in good position with no obvious pneumothorax. The left apical pneumothorax appears stable. PG Care Time/CCT Total # of Minutes Spent Total Time Spent with Patient: Total time spent is greater than 50% in coordination of care (as documented) at patient's floor/unit and/or counseling patient: Coding Level of Care Code 45917 SUB INP/OBS CARE 2/35MIN Diagnoses SOB (shortness of breath) R06.02 Bilateral pleural effusion J90 Hypoxia R09.02 Pneumothorax on right J93.9
--- NOTE | 2024-09-05 08:02 | XRay Report ---
EXAM: XR chest 1V portable CLINICAL HISTORY: ptx TECHNIQUE: An X-ray image of the chest is obtained in 1 AP projection. COMPARISON: 09/04/2024. FINDINGS: Pulmonary Parenchyma: Interval improvement of right pneumothorax. Unchanged small left pneumothorax. Stable nodular and patchy alveolar opacities are noted bilaterally. Small bilateral pleural effusions are unchanged. Heart and Mediastinum: Heart size is within normal limits. No mediastinal widening or masses. No hilar or mediastinal lymphadenopathy. Right chest wall port is in place with the catheter tip projecting at the level of the superior vena cava (SVC), unchanged. Bony Thorax: The bony thorax appears intact without evidence of acute fracture or deformity. Soft Tissues: Soft tissues overlying the chest wall are unremarkable. Right-sided chest tube is present with the tip at the level of the 4th intercostal space, unchanged in position. IMPRESSION: 1. Interval improvement of right pneumothorax. 2. Stable small left pneumothorax. 3. Unchanged bilateral nodular and patchy opacities, likely metastatic pulmonary deposits. 4. Stable small bilateral pleural effusions. 5. Right chest tube and chest wall port remain unchanged in position. Electronically signed by Real Hester 09-05-2024 08:02 AM
--- NOTE | 2024-09-05 12:39 | Hospitalist Progress Note ---
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 She is being managed for the following: Shortness of breath Bilateral pleural effusion Metastatic lung disease Pt comes in w/ worsening sob, trialed lasix at home w/ no improvement. Trop, BNP wnl. ECHO w/ EF of 60-65%, LV systolic fxn nl, no RWMA. b/l large pl eff noted. CTA chest neg for PE, has metastatic pul nodules and reveals 3.6 cm left thyroid mass. Pulm on board, bilateral thoracentesis 09/03, cytology pending Thoracentesis complicated with right-sided pneumothorax, pigtail catheter placement 09/03. clamp trial done on 09/04; recurrence of right-sided pneumothorax; plan to continue chest tube for now. pulmonology on board. Left lower extremity edema: No DVT on LLE venous doppler, treated with iv lasix. No heart failure, CT venogram abd/pelvis not showing any obstruction to explain cause for LLE/pelvis edema. d/w pt's OP oncology, plan to get MRI pelvis. MRI abdomen pelvis with no compressive pathology. Abnormal MRI pelvis/likely postoperative changes to the muscles: previous provider discussed with patient's orthopedic at [facility], likely postoperative changes and no acute need for orthopedic attention. Pt doesn't have pain or any pelvic discomfort. Left thyroid mass [3.6 cm] and right renal lesion [1.8 cm]: Noted on imagings while inpatient, discussed with Dr. Wilson 09/02, plan to follow-up & do follow-up test upon discharge. History of saddle pulm embolism in March 2023 and DVT: eliquis currently on hold History of CLL: Under observation, f/u w/ onc on dc. 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 Follow-up Multiple thyroid nodules: Following with endocrinology DVT prophylaxis: On Eliquis-on hold for now. started on heparin sq Disposition: Telemetry Full code. Time spent evaluating patient, direct bedside care, chart review, placing orders, interpretation of diagnostic studies, discussion with consultants, patient, and family members, as well as other required patient management activities is 50 minutes Please note the above document was generated using voice recognition software. It may contain grammatical, syntax or spelling errors. Any formal questions or concerns about the content, text or information contained within the body of this dictation should be directly addressed to the provider for clarification Admission and Anticipated Discharge Date Admission Date: September 01, 2024 Subjective Patient seen and examined at bedside. She is comfortable; not in distress. She denies getting short of breath. She denies any chest pain. She reports some pain at the site of chest tube insertion. Review of Systems Review of Systems: All systems reviewed & are unremarkable except as noted in Subjective Physical Exam Physical Exam: General-comfortable; not in any distress Neck- supple, no JVD no bruits appreciated Lungs- Chest tube in place on the right side; decreased breath sound at right lung base field Heart- regular rate and rhythm rhythm; no murmur, no gallop. 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 Neuro- alert, oriented PERRL, EOMI; no facial palsy; no dysarthria; obeys simple commands Results & Data Results & Data Vital Signs (Past 12 Hours) Vital Signs Temp Pulse Pulse Resp BP Pulse Ox O2 Del Method 09/05/24 09:07 36.6 C 91 H 18 98/56 L 97 Nasal Cannula 09/05/24 07:17 Nasal Cannula 09/05/24 07:09 80 09/05/24 03:46 36.3 C L 84 16 82/51 L 97 Nasal Cannula 09/05/24 00:43 87 O2 Flow Rate 09/05/24 09:07 09/05/24 07:17 1 09/05/24 07:09 09/05/24 03:46 1 09/05/24 00:43
[2024-09-05] MEDS: HEPARIN SOD 5,000 UNIT/0.5 ML VIAL SQ SCH (21:25)
[2024-09-06 06:39] LABS: Hematocrit (blood only) 31.8 % (37.0-47.0); Hemoglobin 10.4 g/dl (12.0-16.0); Immature Granulocytes # (auto) 0.03 K/uL (0.01-0.20); Immature Granulocytes % (auto) 0.4 %; Mean Corpuscular Hemoglobin 31.4 pg (25.0-34.0); Mean Corpuscular Volume 96.1 fL (80.0-100.0); Platelet Count 380 K/uL (130-400); RDW Standard Deviation 50.9 fL (36.4-46.3); Red Blood Count 3.31 M/uL (4.20-5.40); White Blood Count 8.05 K/ul (4.8-10.8)
[2024-09-06 06:51] LABS: Anion Gap 4.0 (3-11); Blood Urea Nitrogen 7.0 mg/dl (6-23); Calcium 7.7 mg/dl (8.6-10.3); Carbon Dioxide 32.0 mmol/L (21-32); Chloride 100.0 mmol/L (98-107); Creatinine Clr Calc Pharmacy 100.8 ml/min; Glucose 90.0 mg/dl (70-99(Fasting)); Potassium 3.6 mmol/L (3.5-5.1); Sodium 136.0 mmol/L (136-145)
--- NOTE | 2024-09-06 07:47 | XRay Report ---
EXAM: XR chest 1V portable CLINICAL HISTORY: ptx TECHNIQUE: An X-ray image of the chest is obtained in 1 AP projection. COMPARISON: 09/05/2024 05:53:33 PSYCHIATRY RESIDENT FINDINGS: Pulmonary Parenchyma: Interval improvement of right pneumothorax. Unchanged small left pneumothorax. Stable nodular and patchy alveolar opacities are noted bilaterally. Small bilateral pleural effusions are unchanged. Heart and Mediastinum: Heart size is within normal limits. No mediastinal widening or masses. No hilar or mediastinal lymphadenopathy. Right chest wall port is in place with the catheter tip projecting at the level of the superior vena cava (SVC), unchanged. Bony Thorax: The bony thorax appears intact without evidence of acute fracture or deformity. Soft Tissues: Soft tissues overlying the chest wall are unremarkable. Right-sided chest tube is present with the tip at the level of the 4th intercostal space, unchanged in position. Right sided port insitu with tip in right cavo-atrial junction- unchanged IMPRESSION: 1. Interval improvement of right pneumothorax. 2. Stable small left pneumothorax. 3. Unchanged bilateral nodular and patchy opacities, likely metastatic pulmonary deposits. 4. Stable small bilateral pleural effusions. 5. Right chest tube and chest wall port remain unchanged in position. 6. No new interval chages since prior study. Electronically signed by Sheldon Najera 09-06-2024 07:47 AM
[2024-09-06] MEDS: FUROSEMIDE 20 MG TAB PO SCH (10:32)
--- NOTE | 2024-09-06 10:50 | Pulmonology Progress Note ---
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 She developed an iatrogenic pneumothorax on the right with pigtail catheter placement 09/03/2024, she failed clamping trial. The left apical pneumothorax is stable. 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 No clear pneumothorax on the right side. Multiple pulmonary nodules appreciated bilaterally Continue with continuous suction on the right-sided chest tube Repeat chest x-ray in the morning If the chest x-ray the morning it is good then we will take the patient off suction and repeat a chest x-ray in the afternoon Given the lower extremity edema, I would recommend the patient to be given diuretics and keeping her negative balance I spent more than 43 minutes looking in the chart, images, discussing with outgoing physician, discussing the plan of care with the patient, RN as well as primary team Please note the above document was generated using voice recognition software. It may contain grammatical, syntax or spelling errors.Any formal questions or concerns about the content, text or information contained within the body of this dictation should be directly addressed to the provider for clarification. Admission and Anticipated Discharge Date Admission Date: September 01, 2024 Subjective Patient seen and examined at bedside. No acute distress, no adverse events overnight She was sitting on the chair Her saturation was 93-94% on room air The chest tube did not show any leak. She was on continuous suction Denied any chest Pain, no chest discomfort at the site of the chest tube No nausea or vomiting Fair appetite Patient's sister was in the room at the time of examination Review of Systems 2 Review of Systems: All systems reviewed & are unremarkable except as noted in Subjective Physical Exam 2 Physical Exam: Constitutional: No acute distress, frail-appearing HEENT: EOMI, PERRLA Respiratory system: Good air entry bilaterally, no wheeze, no rhonchi, mild crackles bilaterally CVS: S1-S2 positive, no murmurs or gallops Abdomen: Soft, nontender, nondistended, positive bowel sounds x4 Extremities: +2 pulses bilaterally radialis/ dorsalis pedis, no cyanosis, +2 edema left lower extremity, right whole leg amputation Neuro: Awake alert oriented x3 Psych: Normal mood and affect G/U: No Meyer Skin: no rashes, warm and dry Lymphatic: no cervical or axillary lymphadenopathy Results & Data Results & Data Vital Signs (Past 12 Hours) Vital Signs Temp Pulse Pulse Resp BP Pulse Ox O2 Del Method 09/06/24 08:00 37.0 C 96 H 18 98/61 L 91 Room Air 09/06/24 00:18 85 09/05/24 23:57 36.7 C 90 17 99/55 L 93 Room Air Laboratory Results 09/06/24 06:00 09/06/24 06:00 PG Care Time/CCT Total # of Minutes Spent Total Time Spent with Patient: Total time spent is greater than 50% in coordination of care (as documented) at patient's floor/unit and/or counseling patient: Coding Level of Care Code 37825 SUB INP/OBS CARE 2/35MIN Diagnoses SOB (shortness of breath) R06.02 Bilateral pleural effusion J90 Hypoxia R09.02 Pneumothorax on right J93.9
--- NOTE | 2024-09-06 12:32 | Hospitalist Progress Note ---
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 She is being managed for the following: Shortness of breath Bilateral pleural effusion Metastatic lung disease Pt comes in w/ worsening sob, trialed lasix at home w/ no improvement. Trop, BNP wnl. ECHO w/ EF of 60-65%, LV systolic fxn nl, no RWMA. b/l large pl eff noted. CTA chest neg for PE, has metastatic pul nodules and reveals 3.6 cm left thyroid mass. Pulm on board, bilateral thoracentesis 09/03, cytology Showed benign mesothelial cells and scattered histiocytes Thoracentesis complicated with right-sided pneumothorax, pigtail catheter placement 09/03. clamp trial done on 09/04; recurrence of right-sided pneumothorax; plan to continue chest tube for now. pulmonology on board. Left lower extremity edema: No DVT on LLE venous doppler, treated with iv lasix. No heart failure, CT venogram abd/pelvis not showing any obstruction to explain cause for LLE/pelvis edema. d/w pt's OP oncology, plan to get MRI pelvis. MRI abdomen pelvis with no compressive pathology. Abnormal MRI pelvis/likely postoperative changes to the muscles: previous provider discussed with patient's orthopedic at [facility], likely postoperative changes and no acute need for orthopedic attention. Pt doesn't have pain or any pelvic discomfort. Left thyroid mass [3.6 cm] and right renal lesion [1.8 cm]: Noted on imagings while inpatient, discussed with Dr. Wilson 09/02, plan to follow-up & do follow-up test upon discharge. History of saddle pulm embolism in March 2023 and DVT: eliquis currently on hold History of CLL: Under observation, f/u w/ onc on dc. 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 Follow-up Multiple thyroid nodules: Following with endocrinology DVT prophylaxis: On Eliquis-on hold for now. started on heparin sq Disposition: Telemetry Full code. Time spent evaluating patient, direct bedside care, chart review, placing orders, interpretation of diagnostic studies, discussion with consultants, patient, and family members, as well as other required patient management activities is 50 minutes Please note the above document was generated using voice recognition software. It may contain grammatical, syntax or spelling errors. Any formal questions or concerns about the content, text or information contained within the body of this dictation should be directly addressed to the provider for clarification Admission and Anticipated Discharge Date Admission Date: September 01, 2024 Subjective Patient seen and examined at bedside. Comfortable; not in distress. Denies fever, chills, chest pain, shortness of breath, abdominal pain or urinary symptoms. No significant overnight events Review of Systems Review of Systems: All systems reviewed & are unremarkable except as noted in Subjective Physical Exam Physical Exam: General-comfortable; not in any distress Neck- supple, no JVD no bruits appreciated Lungs- Chest tube in place on the right side; decreased breath sound at right lung base field Heart- regular rate and rhythm rhythm; no murmur, no gallop. Abdomen- normal bowel sounds, soft, nontender, no distension Extremities- Left leg +2 edema seen, RLE amputation at hip level, amputation site w/ no s/s of infection, Neuro- alert, oriented PERRL, EOMI; no facial palsy; no dysarthria; obeys si mple commands Results & Data Results & Data Vital Signs (Past 12 Hours) Vital Signs Temp Pulse Pulse Resp BP Pulse Ox O2 Del Method 09/06/24 12:00 36.7 C 68 17 92/56 L 94 Room Air 09/06/24 09:00 92 H 09/06/24 08:00 37.0 C 96 H 18 98/61 L 91 Room Air
[2024-09-07 06:00] LABS: Hematocrit (blood only) 32.7 % (37.0-47.0); Hemoglobin 10.4 g/dl (12.0-16.0); Immature Granulocytes # (auto) 0.02 K/uL (0.01-0.20); Immature Granulocytes % (auto) 0.3 %; Mean Corpuscular Hemoglobin 30.6 pg (25.0-34.0); Mean Corpuscular Volume 96.2 fL (80.0-100.0); Platelet Count 400 K/uL (130-400); RDW Standard Deviation 51.3 fL (36.4-46.3); Red Blood Count 3.40 M/uL (4.20-5.40); White Blood Count 6.91 K/ul (4.8-10.8)
[2024-09-07 06:20] LABS: Anion Gap 5.0 (3-11); Blood Urea Nitrogen 8.0 mg/dl (6-23); Calcium 7.7 mg/dl (8.6-10.3); Carbon Dioxide 29.0 mmol/L (21-32); Chloride 104.0 mmol/L (98-107); Creatinine Clr Calc Pharmacy 106.5 ml/min; Glucose 91.0 mg/dl (70-99(Fasting)); Potassium 3.8 mmol/L (3.5-5.1); Sodium 138.0 mmol/L (136-145)
--- NOTE | 2024-09-07 08:20 | Pulmonology Progress Note ---
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 She developed an iatrogenic pneumothorax on the right with pigtail catheter placement 09/03/2024, she failed clamping trial once in the right side. 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 It may contain grammatical, syntax or spelling errors.Any formal questions or concerns about the content, text or information contained within the body of this dictation should be directly addressed to the provider for clarification. Admission and Anticipated Discharge Date Admission Date: September 01, 2024 Subjective Patient seen and examined at bedside. No acute distress, no adverse events overnight She was sitting comfortably on the chair. Denied any nausea or vomiting Appetite is fair Denied any discomfort at the site of the chest tube Has been afebrile RN was also in the room at the time of examination Review of Systems 2 Review of Systems: All systems reviewed & are unremarkable except as noted in Subjective Physical Exam 2 Physical Exam: Constitutional: No acute distress, frail-appearing HEENT: EOMI, PERRLA Respiratory system: Good air entry bilaterally, no wheeze, no rhonchi, positive crackles bilaterally, more on the right side CVS: S1-S2 positive, no murmurs or gallops Abdomen: Soft, nontender, nondistended, positive bowel sounds x4 Extremities: +2 pulses bilaterally radialis/ dorsalis pedis, no cyanosis, +2 edema left lower extremity, right whole leg amputation Neuro: Awake alert oriented x3 Psych: Normal mood and affect G/U: No Meyer Skin: no rashes, warm and dry Lymphatic: no cervical or axillary lymphadenopathy Results & Data Results & Data Vital Signs (Past 12 Hours) Vital Signs Temp Pulse Pulse Resp BP Pulse Ox O2 Del Method 09/07/24 08:06 36.7 C 94 H 18 96/64 L 94 Room Air 09/07/24 03:24 36.5 C 76 17 100/61 94 Room Air 09/06/24 22:33 36.7 C 86 16 95/50 L 92 Room Air 09/06/24 21:45 87 Laboratory Results 09/07/24 05:34 09/07/24 05:34 PG Care Time/CCT Total # of Minutes Spent Total Time Spent with Patient: Total time spent is greater than 50% in coordination of care (as documented) at patient's floor/unit and/or counseling patient: Coding Level of Care Code 27856 SUB INP/OBS CARE 2/35MIN Diagnoses SOB (shortness of breath) R06.02 Bilateral pleural effusion J90 Hypoxia R09.02 Pneumothorax on right J93.9
--- NOTE | 2024-09-07 08:44 | XRay Report ---
EXAM: XR chest 1V portable CLINICAL HISTORY: F/u. TECHNIQUE: An X-ray image of the chest is obtained in AP projection. COMPARISON: CXR dated 09/06/2024. FINDINGS: Pulmonary Parenchyma: Unchanged small left pneumothorax. Stable nodular and patchy alveolar opacities are noted bilaterally; the left para-cardiac opacity becomes more conspicuous. Small bilateral pleural effusions are unchanged. Heart and Mediastinum: Heart size is within normal limits. No mediastinal widening or masses. No hilar or mediastinal lymphadenopathy. Unchanged central venous line, with its tip projecting at the level of the cavo-atrial junction. Bony Thorax: The bony thorax appears intact without evidence of acute fracture or deformity. Soft Tissues: Soft tissues overlying the chest wall are unremarkable. Unchanged right chest tube with its tip at the upper zone. IMPRESSION: 1. Unchanged small left pneumothorax. 2. Unchanged bilateral nodular and patchy opacities, apart from the left para-cardiac opacity becomes more conspicuous. 3. Stable small bilateral pleural effusions. 4. Unchanged right chest tube with its tip at the upper zone. 5. Unchanged central venous line, with its tip projecting at the level of the cavo-atrial junction. 6. No new interval changes since the prior study. Electronically signed by Real Hester 09-07-2024 08:44 AM
[2024-09-07] MEDS: FUROSEMIDE INJ 20 MG/2 ML VIAL IV ONE (13:24)
--- NOTE | 2024-09-07 14:37 | XRay Report ---
XR chest 1V portable CLINICAL HISTORY: f/u COMPARISON STUDY: Exam earlier today FINDINGS: Heart size and pulmonary vasculature are normal. Stable right chest port. Stable right ches t tube. Stable scattered pulmonary nodules. Stable bilateral pleural effusions and lung base consolid ation. No significant pneumothorax seen on the right. There is a stable small left apical pneumothora x. IMPRESSION: Stable exam. ACT 112: Negative or not required by law. Electronically signed by: Kb Powell M.D. 09/07/2024 2:36 PM
--- NOTE | 2024-09-07 14:51 | Hospitalist Progress Note ---
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 She is being managed for the following: Shortness of breath Bilateral pleural effusion Metastatic lung disease Pt comes in w/ worsening sob, trialed lasix at home w/ no improvement. Trop, BNP wnl. ECHO w/ EF of 60-65%, LV systolic fxn nl, no RWMA. b/l large pl eff noted. CTA chest neg for PE, has metastatic pul nodules and reveals 3.6 cm left thyroid mass. Pulm on board, bilateral thoracentesis 09/03, cytology Showed benign mesothelial cells and scattered histiocytes Thoracentesis complicated with right-sided pneumothorax, pigtail catheter placement 09/03. clamp trial done on 09/04; recurrence of right-sided pneumothorax; Patient taken off suction again on 09/07; repeat chest x-ray stable at this time. Possible discontinuation of chest tube and discharge tomorrow a.m. Left lower extremity edema: No DVT on LLE venous doppler, treated with iv lasix. No heart failure, CT venogram abd/pelvis not showing any obstruction to explain cause for LLE/pelvis edema. d/w pt's OP oncology, plan to get MRI pelvis. MRI abdomen pelvis with no compressive pathology. Abnormal MRI pelvis/likely postoperative changes to the muscles: previous provider discussed with patient's orthopedic at [facility], likely postoperative changes and no acute need for orthopedic attention. Pt doesn't have pain or any pelvic discomfort. Left thyroid mass [3.6 cm] and right renal lesion [1.8 cm]: Noted on imaging while inpatient, discussed with Dr. Wilson 09/02, plan to follow-up & do follow-up test upon discharge. History of saddle pulm embolism in March 2023 and DVT: Eliquis currently on hold History of CLL: Under observation, f/u w/ onc on dc. 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 Follow-up Multiple thyroid nodules: Following with endocrinology DVT prophylaxis: On Eliquis-on hold for now. started on heparin sq Disposition: Telemetry Full code. Time spent evaluating patient, direct bedside care, chart review, placing orders, interpretation of diagnostic studies, discussion with consultants, patient, and family members, as well as other required patient management activities is 50 minutes Please note the above document was generated using voice recognition software. It may contain grammatical, syntax or spelling errors. Any formal questions or concerns about the content, text or information contained within the body of this dictation should be directly addressed to the provider for clarification Admission and Anticipated Discharge Date Admission Date: September 01, 2024 Subjective Patient seen and examined at bedside. She is comfortable; not in distress She is saturating well in room air No significant events overnight Review of Systems Review of Systems: All systems reviewed & are unremarkable except as noted in Subjective Physical Exam Physical Exam: General-comfortable; not in any distress Neck- supple, no JVD no bruits appreciated Lungs- Chest tube in place on the right side; b/l clear breath sounds Heart- regular rate and rhythm rhythm; no murmur, no gallop. Abdomen- normal bowel sounds, soft, nontender, no distension Extremities- Left leg +1 edema seen, RLE amputation at hip level, amputation site w/ no s/s of infection, Neuro- alert, oriented PERRL, EOMI; no facial palsy; no dysarthria; obeys simple commands Results & Data Results & Data Vital Signs (Past 12 Hours) Vital Signs Temp Pulse Pulse Resp BP Pulse Ox O2 Del Method 09/07/24 11:11 36.7 C 97 H 18 126/78 94 Room Air 09/07/24 08:42 83 09/07/24 08:06 36.7 C 94 H 18 96/64 L 94 Room Air 09/07/24 03:24 36.5 C 76 17 100/61 94 Room Air
[2024-09-08 06:52] LABS: Anion Gap 6.0 (3-11); Blood Urea Nitrogen 8.0 mg/dl (6-23); Calcium 8.0 mg/dl (8.6-10.3); Carbon Dioxide 30.0 mmol/L (21-32); Chloride 103.0 mmol/L (98-107); Creatinine Clr Calc Pharmacy 101.4 ml/min; Glucose 89.0 mg/dl (70-99(Fasting)); Potassium 3.6 mmol/L (3.5-5.1); Sodium 139.0 mmol/L (136-145)
--- NOTE | 2024-09-08 07:48 | XRay Report ---
EXAM: XR chest 1V portable CLINICAL HISTORY: f/u TECHNIQUE: An X-ray image of the chest is obtained in AP projection. COMPARISON: 09/07/2024 05:58:00 CAMPUS INTERVIEWS INTERN FINDINGS: Pulmonary Parenchyma: Interval mild decrease in small left pneumothorax. Patchy alveolar opacities in bilateral lower zones. Small bilateral pleural effusions are unchanged. Heart and Mediastinum: Heart size is within normal limits. No mediastinal widening or masses. No hilar or mediastinal lymphadenopathy. Unchanged central venous line, with its tip projecting at the level of the cavo-atrial junction. Bony Thorax: The bony thorax appears intact without evidence of acute fracture or deformity. Soft Tissues: Soft tissues overlying the chest wall are unremarkable. Unchanged right chest tube with its tip at the upper zone. IMPRESSION: 1. Interval mild decrease in small left pneumothorax. 2. Unchanged bilateral lower zones patchy opacities. 3. Stable small bilateral pleural effusions. 4. Unchanged right chest tube with its tip at the upper zone. 5. Unchanged central venous line, with its tip projecting at the level of the cavo-atrial junction.No new interval changes since the prior study. Electronically signed by Sheldon Najera 09-08-2024 07:47 AM
--- NOTE | 2024-09-08 10:22 | Pulmonology Progress Note ---
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 She developed an iatrogenic pneumothorax on the right with pigtail catheter placement 09/03/2024, she failed clamping trial once in the right side. 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 Patient seen and examined at bedside. No acute distress, no adverse events overnight Chest tube was clamped around 7:30 AM today. Denies any discomfort Shortness of breath has significantly improved Has been urinating well No nausea vomiting, fair appetite Constitutional: No acute distress, frail-appearing HEENT: EOMI, PERRLA Respiratory system: Good air entry bilaterally, no wheeze, no rhonchi, positive crackles bilaterally, more on the right side CVS: S1-S2 positive, no murmurs or gallops Abdomen: Soft, nontender, nondistended, positive bowel sounds x4 Extremities: +2 pulses bilaterally radialis/ dorsalis pedis, no cyanosis, +2 edema left lower extremity, right whole leg amputation Neuro: Awake alert oriented x3 Psych: Normal mood and affect G/U: No Meyer Plan: In/out: -1230, urine output -2300, -6.8L since coming to the hospital Chest x-ray from today on personal review shows mild improvement in the left- sided pneumothorax, no clear signs of right-sided pneumothorax with chest tube in place. Chest tube clamped. Repeat CXR 1300 and if stable will discontinue right pigtail chest tube. Given the lower extremity edema, Recommend continuing diuretics and keeping her negative balance Case discussed with RN at bedside and primary team Please note the above document was generated using voice recognition software. It may contain grammatical, syntax or spelling errors.Any formal questions or concerns about the content, text or information contained within the body of this dictation should be directly addressed to the provider for clarification. Subjective "I am doing great my shortness of breath is improved." Patient on room air this am with SpO2 94%. Shortness of breath subjectively improved. CXR this am shows no right pneumothorax and improvement in left pneumothorax. Chest tube clamped. Will plan to repeat CXR at 1300 and discontinue right pigtail chest tube if no recurrence of pneumothorax. Review of Systems 2 Review of Systems: All systems reviewed & are unremarkable except as noted in HPI & below Physical Exam 2 Physical Exam: VITALS: Reviewed. WEIGHT/BMI reviewed. GEN: Frail, well-developed, NAD. PSYCH: Good Judgment. AOx3. Normal memory, mood, and affect. HEENT -Head: NC/AT; -Eyes: PERRL, EOMI. No discharge or redn ess; -Ears: External ears are normal. -Nose: Normal nares. NECK: Supple, with no masses. CV: RRR, no m/r/g. LUNGS: CTAB, no w/r/c. ABD: Soft, NT/ND, NBS, no masses or organomegaly. : N/A SKIN: Warm, well perfused. No skin rashes or abnormal lesions. MSK: No deformities, Normal gait. EXT: No clubbing, cyanosis, or edema. NEURO: Normal muscle strength and tone. No focal deficits. Skin: no rashes, warm and dry Lymphatic: no cervical or axillary lymphadenopathy Results & Data Results & Data Vital Signs (Past 12 Hours) Vital Signs Temp Pulse Resp BP Pulse Ox O2 Del Method 09/08/24 09:39 Room Air 09/08/24 07:50 36.8 C 81 20 99/61 L 93 Room Air 09/08/24 03:36 36.6 C 92 H 18 89/55 L 94 Room Air 09/07/24 23:25 36.7 C 97 H 16 91/56 L 93 Room Air Laboratory Results 09/07/24 05:34 09/08/24 05:17 Abnormal Lab Results 09/08/24 05:17 Sodium 139 Potassium 3.6 Chloride 103 Carbon Dioxide 30 Anion Gap 6 BUN 8 Creatinine 0.38 L Est Cr Clr Drug Dosing 101.4 eGFR 110.45 BUN/Creatinine Ratio 21.1 H Glucose 89 Calcium 8.0 L Diagnostic Findings Chest X-Ray 09/07/24 14:00 XR chest 1V portable CLINICAL HISTORY: f/u COMPARISON STUDY: Exam earlier today FINDINGS: Heart size and pulmonary vasculature are normal. Stable right chest port. Stable right chest tube. Stable scattered pulmonary nodules. Stable bilateral pleural effusions and lung base consolidation. No significant pneumothorax seen on the right. There is a stable small left apical pneumothorax. IMPRESSION: Stable exam. ACT 112: Negative or not required by law. Electronically signed by: Kb Powell M.D. 09/07/2024 2:36 PM Chest X-Ray 09/08/24 07:00 EXAM: XR chest 1V portable CLINICAL HISTORY: f/u TECHNIQUE: An X-ray image of the chest is obtained in AP projection. COMPARISON: 09/07/2024 05:58:00 THIRD RIGGER FINDINGS: Pulmonary Parenchyma: Interval mild decrease in small left pneumothorax. Patchy alveolar opacities in bilateral lower zones. Small bilateral pleural effusions are unchanged. Heart and Mediastinum: Heart size is within normal limits. No mediastinal widening or masses. No hilar or mediastinal lymphadenopathy. Unchanged central venous line, with its tip projecting at the level of the cavo-atrial junction. Bony Thorax: The bony thorax appears intact without evidence of acute fracture or deformity. Soft Tissues: Soft tissues overlying the chest wall are unremarkable. Unchanged right chest tube with its tip at the upper zone. IMPRESSION: 1. Interval mild decrease in small left pneumothorax. 2. Unchanged bilateral lower zones patchy opacities. 3. Stable small bilateral pleural effusions. 4. Unchanged right chest tube with its tip at the upper zone. 5. Unchanged central venous line, with its tip projecting at the level of the cavo-atrial junction.No new interval changes since the prior study. Electronically signed by Sheldon Najera 09-08-2024 07:47 AM PG Care Time/CCT Total # of Minutes Spent Total Time Spent with Patient: Total time spent is greater than 50% in coordination of care (as documented) at patient's floor/unit and/or counseling patient: Coding Level of Care Code 14733 SUB INP/OBS CARE 2/35MIN Diagnoses SOB (shortness of breath) R06.02 Bilateral pleural effusion J90 Hypoxia R09.02 Pneumothorax on right J93.9
--- NOTE | 2024-09-08 12:35 | Hospitalist Progress Note ---
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 She is being managed for the following: Shortness of breath Bilateral pleural effusion Metastatic lung disease Pt comes in w/ worsening sob, trialed lasix at home w/ no improvement. Trop, BNP wnl. ECHO w/ EF of 60-65%, LV systolic fxn nl, no RWMA. b/l large pl eff noted. CTA chest neg for PE, has metastatic pul nodules and reveals 3.6 cm left thyroid mass. Pulm on board, bilateral thoracentesis 09/03, cytology Showed benign mesothelial cells and scattered histiocytes Thoracentesis complicated with right-sided pneumothorax, pigtail catheter placement 09/03--> plan for DC'ing chest tube today. d/w pulm, ok to resume eliquis. resumed. Left lower extremity edema: No DVT on LLE venous doppler, treated with iv lasix. No heart failure, CT venogram abd/pelvis not showing any obstruction to explain cause for LLE/pelvis edema. d/w pt's OP oncology, plan to get MRI pelvis. MRI abdomen pelvis with no compressive pathology. Maintain lasix and FR of 1800 ml/day. Abnormal MRI pelvis/likely postoperative changes to the muscles: discussed with patient's orthopedic at [facility], likely postoperative changes and no acute need for orthopedic attention. Pt doesn't have pain or any pelvic discomfort. Left thyroid mass [3.6 cm] and right renal lesion [1.8 cm]: Noted on imaging while inpatient, discussed with Dr. Wilson 09/02, plan to follow-up & do follow-up test upon discharge. History of saddle pulm embolism in March 2023 and DVT: Eliquis resumed. History of CLL: Under observation, f/u w/ onc on dc. 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 Follow-up Multiple thyroid nodules: Following with endocrinology DVT prophylaxis: On Eliquis-on hold for now. started on heparin sq Disposition: Telemetry Full code. Time spent evaluating patient, direct bedside care, chart review, placing orders, interpretation of diagnostic studies, discussion with consultants, patient, and family members, as well as other required patient management activities is 50 minutes Please note the above document was generated using voice recognition software. It may contain grammatical, syntax or spelling errors. Any formal questions or concerns about the content, text or information contained within the body of this dictation should be directly addressed to the provider for clarification Admission and Anticipated Discharge Date Admission Date: September 01, 2024 Subjective Patient seen and examined at bedside. She is comfortable; not in distress She is saturating well in room air No significant events overnight Physical Exam Physical Exam: General-comfortable; not in any distress Neck- supple, no JVD no bruits appreciated Lungs- Chest tube in place on the right side; b/l clear breath sounds Heart- regular rate and rhythm rhythm; no murmur, no gallop. Abdomen- normal bowel sounds, soft, nontender, no distension Extremities- Left leg +1 edema seen, RLE amputation at hip level, amputation site w/ no s/s of infection, Neuro- alert, oriented PERRL, EOMI; no facial palsy; no dysarthria; obeys simple commands Results & Data Results & Data Vital Signs (Past 12 Hours) Vital Signs Temp Pulse Resp BP Pulse Ox O2 Del Method 09/08/24 11:10 36.5 C 85 17 92/57 L 92 Room Air 09/08/24 09:39 Room Air 09/08/24 07:50 36.8 C 81 20 99/61 L 93 Room Air 09/08/24 03:36 36.6 C 92 H 18 89/55 L 94 Room Air
--- NOTE | 2024-09-08 13:57 | XRay Report ---
XR chest 1V portable CLINICAL HISTORY: f/u Chest tube clamped COMPARISON STUDY: 09/08/2024 FINDINGS: Stable right chest port and right chest tube. No pneumothorax seen on the right. There is a small left apical pneumothorax with 2 cm pleural separation at the left apex, grossly stable. Stable scattered pulmonary nodules. Stable small bilateral pleural effusions and lung base consolidation, l eft greater than right. IMPRESSION: 1. No pneumothorax on the right. 2. Stable small left apical pneumothorax. ACT 112: Negative or not required by law. Electronically signed by: Kb Powell M.D. 09/08/2024 1:56 PM
--- NOTE | 2024-09-08 14:14 | Procedure Note ---
Procedure Note Date of Service September 08, 2024 Procedure: Pigtail chest tube removal Rn Pediatric: Dr. Renetta Olson Indication: Resolution of pneumothorax Consent: Verbal consent obtained from the patient Anesthesia: None Procedure: Under sterile measures and aseptic precaution, all dressing of the pigtail cat heter was removed. The pigtail catheter was removed gradually on exhalation. It was found to be intact. Vaseline gauze was applied followed by 4 x 4 and dressed with Medipore tape The patient tolerated the procedure without obvious complication Complications: None Blood loss: None [facility] Procedure Codes (Charges) Pulmonary/Thoracic Procedure 1: Pulmonary and Thoracic: 92853 Remove lung catheter Coding CPT Codes Pulmonary/Thoracic - Pulmonary and Thoracic: 71076 Remove lung catheter ([id number]) Additional Codes Date of Service ([email or web address])
[2024-09-09 07:42] LABS: Anion Gap 6.0 (3-11); Blood Urea Nitrogen 9.0 mg/dl (6-23); Calcium 8.0 mg/dl (8.6-10.3); Carbon Dioxide 28.0 mmol/L (21-32); Chloride 104.0 mmol/L (98-107); Creatinine Clr Calc Pharmacy 104.6 ml/min; Glucose 86.0 mg/dl (70-99(Fasting)); Potassium 4.0 mmol/L (3.5-5.1); Sodium 138.0 mmol/L (136-145)
--- NOTE | 2024-09-09 08:04 | XRay Report ---
EXAM: XR chest 1V portable CLINICAL HISTORY: f/u TECHNIQUE: An X-ray image of the chest is obtained in AP projection. COMPARISON: 09/08/2024 FINDINGS: Pulmonary Parenchyma: The right chest tube is removed. No definite residual pneumothorax was seen on the right side. Still noted of left apical pneumothorax in the current study. Bilateral multiple pulmonary nodules/masses (more accentuated in the current study) Small bilateral pleural effusions are unchanged with bilateral fibrotic bands. Bilateral basal alveolar opacities. Right central line in place with tip at the cavoatrial junction. Heart and Mediastinum: Heart size is within normal limits. No mediastinal widening or masses. No hilar or mediastinal lymphadenopathy. Unchanged central venous line, with its tip projecting at the level of the cavo-atrial junction. Bony Thorax: The bony thorax appears intact without evidence of acute fracture or deformity. Soft Tissues: Soft tissues overlying the chest wall are unremarkable. Unchanged right chest tube with its tip at the upper zone. IMPRESSION: 1. Bilateral multiple pulmonary nodules/masses (more accentuated in the current study). Correlate with CT. 2. The right chest tube is removed. No definite residual pneumothorax was seen on the right side. 3. Still noted of left apical pneumothorax in the current study. 4. Small bilateral pleural effusions are unchanged with bilateral fibrotic bands. 5. Right central line in place with tip at cavoatrial junction. Electronically signed by Real Hester 09-09-2024 08:04 AM
--- NOTE | 2024-09-09 08:33 | Pulmonology Progress Note ---
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 She developed an iatrogenic pneumothorax on the right with pigtail catheter placement 09/03/2024, she failed clamping trial once in the right side. CT chest 09/01/2024 personally reviewed: Bilateral large pleural effusion Left lower lobe and right lower lobe pulmonary masses Multiple other pulmonary nodules appreciated bilaterally Minimal mediastinal lymphadenopathy 2D echo 09/02/2024: EF 60-65%, grade 1 diastolic dysfunction, RV normal in size and function --Bilateral pneumothoraces Iatrogenic S/p thoracentesis on 09/03/2024, cytology negative bilaterally, looks transudative Chest tube placed on the right side on 09/03/2024, chest tube removed 09/08/2024 Patient likely has trapped lung on the left side --Large bilateral pleural effusion S/p thoracentesis -- 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, 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 It may contain grammatical, syntax or spelling errors.Any formal questions or concerns about the content, text or information contained within the body of this dictation should be directly addressed to the provider for clarification. Admission and Anticipated Discharge Date Admission Date: September 01, 2024 Subjective Patient seen and examined at bedside. No acute distress, no adverse events overnight She says she is feeling better Denies any chest pain, breathing is at baseline That appetite No nausea or vomiting Has been diuresing well Review of Systems 2 Review of Systems: All systems reviewed & are unremarkable except as noted in Subjective Physical Exam 2 Physical Exam: Constitutional: No acute distress, frail-appearing HEENT: EOMI, PERRLA Respiratory system: Good air entry bilaterally, no wheeze, no rhonchi, positive crackles bilaterally, more on the right side CVS: S1-S2 positive, no murmurs or gallops Abdomen: Soft, nontender, nondistended, positive bowel sounds x4 Extremities: +2 pulses bilaterally radialis/ dorsalis pedis, no cyanosis, +2 edema left lower extremity, right whole leg amputation Neuro: Awake alert oriented x3 Psych: Normal mood and affect G/U: No Meyer Skin: no rashes, warm and dry Lymphatic: no cervical or axillary lymphadenopathy Results & Data Results & Data Vital Signs (Past 12 Hours) Vital Signs Temp Pulse Pulse Pulse Resp BP Pulse Ox 09/09/24 07:30 37 C 92 H 16 95/56 L 94 09/09/24 03:26 36.7 C 84 18 98/63 L 95 09/08/24 23:03 36.7 C 93 H 18 97/58 L 92 09/08/24 22:37 88 O2 Del Method 09/09/24 07:30 Room Air 09/09/24 03:26 Room Air 09/08/24 23:03 Room Air 09/08/24 22:37 Laboratory Results 09/07/24 05:34 09/09/24 06:30 PG Care Time/CCT Total # of Minutes Spent Total Time Spent with Patient: Total time spent is greater than 50% in coordination of care (as documented) at patient's floor/unit and/or counseling patient: Coding Level of Care Code 59440 SUB INP/OBS CARE 2/35MIN Diagnoses SOB (shortness of breath) R06.02 Bilateral pleural effusion J90 Hypoxia R09.02 Pneumothorax on right J93.9
--- NOTE | 2024-09-09 11:43 | Discharge Summary ---
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 Patient is having left leg edema for last 3 weeks. She took 4 to 5 days of Lasix but did not help. And she was getting short of breath and last night the shortness of breath got worse and was advised to come to the hospital. ER spoke with oncology Dr. Wilson and was advised for CT venogram of abdomen pelvis and no clots were seen. CT chest showed bilateral pleural effusions. Currently resting comfortably and hemodynamic stable. Denies headache. When she gets chemo she has some blurred vision. Having some runny nose for couple of weeks. Has cough with yellowish phlegm. Denies any fevers. No difficulty swallowing. Appetite is good. Denies any chest pain. No nausea. No abdominal pain. Uses stool softeners. Micturating okay. Ambulates with a walker. Lives with her . Last chemo was about 4 weeks ago. Currently the plan to change her chemo and to start new chemo on coming Friday as per the patient. Past medical history. As mentioned above. Past surgical history. Disarticulation of right leg at hip. Colonoscopy. Cystourethroscopy with stone removal. EGD. Right parathyroidectomy. Right knee arthroscopy. Puncture drainage of left breast cyst. Bilateral removal of ovaries. Bilateral cataracts. Tendon excision of the left index finger. Total abdominal hysterectomy with removal of tubes. Social history. . No smoking. No alcohol. No drug use. Family history. Mother had breast cancer. Non-Hodgkin's lymphoma. Hypertension. Father had pancreatic cancer. Colon cancer. Diabetes. Heart disorder. Sister had breast cancer. Sister had skin cancer. Maternal grandmother had stroke. Admission Exam Per Admitting Provider General-Not in distress Head- atraumatic Eyes- PERRL, EOMI. ENT- oropharynx clear Neck- supple, no JVD no bruits appreciated Lungs- clear to auscultation no wheezing or crackles Heart- regular rate and rhythm rhythm; no murmur, no gallop. Abdomen- normal bowel sounds, soft, nontender, no distension Extremities- Left leg +2 edema seen Neuro- alert, oriented PERRL, EOMI; no facial palsy; no dysarthria; obeys simple commands Principal Diagnosis Shortness of breath Bilateral pleural effusion Metastatic lung disease Left lower extremity edema Discharge Exam General-comfortable; not in any distress Neck- supple, no JVD no bruits appreciated Lungs- Chest tube in place on the right side; b/l clear breath sounds Heart- regular rate and rhythm rhythm; no murmur, no gallop. Abdomen- normal bowel sounds, soft, nontender, no distension Extremities- Left leg +1 edema seen, RLE amputation at hip level, amputation site w/ no s/s of infection, Neuro- alert, oriented PERRL, EOMI; no facial palsy; no dysarthria; obeys simple commands Discharge Data Allergies Allergy/AdvReac Type Severity Reaction Status Date / Time procaine [From Novocain] Allergy Unknown Unknown Verified 05/19/23 20:22 Consultations 09/01/24 20:26 ED Decision to Admit Stat 09/02/24 08:00 Consult Pulmonology Routine 09/03/24 08:57 Consult Orthopedic Surgery Routine Ordered Studies 09/01/24 14:58 US venous doppler LE LT Stat 09/01/24 16:40 CT angio chest PE protocol Stat 09/01/24 18:54 CT abdomen pelvis veno w con Stat 09/02/24 14:34 MR pelvis wo/w con Routine 09/02/24 16:16 MR abdomen wo/w con Routine Hospital Course (1) SOB (shortness of breath): 64 yo F w/ PMH of saddle embolus of pulmonary artery, right lower extremity DVT, moderate degree malnutrition, GERD, osteoporosis, CLL, anemia of chronic disease, anxiety, 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 She was managed for the following: Shortness of breath Bilateral pleural effusion Metastatic lung disease Pt comes in w/ worsening sob, trialed lasix at home w/ no improvement. Trop, BNP wnl. ECHO w/ EF of 60-65%, LV systolic fxn nl, no RWMA. b/l large pl eff noted. CTA chest neg for PE, has metastatic pul nodules and reveals 3.6 cm left thyroid mass. Pulm on board, bilateral thoracentesis 09/03, cytology Showed benign mesothelial cells and scattered histiocytes Thoracentesis complicated with right-sided pneumothorax, pigtail catheter placement 09/03--> removed 09/08--> f/u CXR on 09/09 w/ no right ptx. d/w pulm, ok for discharge. Left lower extremity edema: No DVT on LLE venous doppler, treated with iv lasix. No heart failure, CT venogram abd/pelvis not showing any obstruction to explain cause for LLE/pelvis edema. d/w pt's OP oncology, plan to get MRI pelvis. MRI abdomen pelvis with no compressive pathology. Maintain lasix and FR of 1800 ml/day. on lasix at dc. Abnormal MRI pelvis/likely postoperative changes to the muscles: discussed with patient's orthopedic at [facility], likely postoperative changes and no acute need for orthopedic attention. Pt doesn't have pain or any pelvic discomfort. Left thyroid mass [3.6 cm] and right renal lesion [1.8 cm]: Noted on imaging while inpatient, discussed with Dr. Wilson 09/02, plan to follow-up & do follow-up test upon discharge. History of saddle pulm embolism in March 2023 and DVT: Eliquis resumed. History of CLL: Under observation, f/u w/ onc on dc. 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 Follow-up Multiple thyroid nodules: Following with endocrinology DVT prophylaxis: On Eliquis-on hold for now. started on heparin sq Disposition: Telemetry Full code. Patient is being discharged home with home health with following instructions at the point of discharge: Follow-up with your primary care physician within a week time and likely you will need labs CBC/CMP/magnesium/phosphorus. Follow up with your oncology in 1-2 weeks time upon discharge. You will need Chest XR in about a week time to document resolution of your pneumothorax, coordinate with your PCP office to set up the test. Your hydrochlorothiazide will be discontinued and you will be placed on small dose Lasix, maintain fluid restriction of 1800 mL a day, keep left lower extremity elevated when possible. As discussed at the bedside, follow-up on your left thyroid mass and right renal lesion with your oncology upon discharge. Take your medications as prescribed. Please make sure that you are able to get your medications today by calling your pharmacy before you leave the hospital so that your treatment continuity is not broken. Home Health Attestation I certify that this patient is under my care and that I, or a physicians commercial lines assistant working with me, had a face to-face encounter that meets the home health [id number] encounter requirements with this patient. The encounter with the patient was in whole, or in part, for the following medical condition, which is the primary reason for home health care (list medical condition): I certify that, based on my findings, the following services are medically necessary home health services: My clinical findings support the need for the above services because: Further, I certify that my clinical findings support that this patient is homebo und (i.e. absences from home require considerable and taxing effort and are for medical reasons or nondenominational services or infrequently or of short duration when for other reasons) because: Certification for Home Health Services: Based on the above findings, I certify that this patient is confined to the home and needs intermittent retirement care, physical therapy and/or speech therapy or continues to need occupational therapy. The patient is under my care, and I have initiated the establishment of the plan of care. This patient will be followed by a physician who will periodically review the plan of care. Total Time Total Time Spent Total Time Spent (In Minutes): 35 Discharge Plan Discharge Items Patient Disposition: Home - Home Health Services Reason For Visit: SOB, HYPOXIA Discharge Diagnosis: Shortness of breath Bilateral pleural effusion Metastatic lung disease Left lower extremity edema Condition on Discharge: Fair Activity: Resume your previous activity Non-emergency contact: Primary Care Provider Call non-emergency contact if: you have any medication questions and your symptoms worsen Follow-up/Referrals: Venessa Kaufman MD [Primary Care Provider] - (Date & Time 09/13/2024 12:20 PM Provider: Venessa Kaufman MD [facility] ) Diet: Heart Healthy Fluids: 1800ml (7 cups) Addtl Attending Provider Instructions: Follow-up with your primary care physician within a week time and likely you will need labs CBC/CMP/magnesium/phosphorus. Follow up with your oncology in 1-2 weeks time upon discharge. You will need Chest XR in about a week time to document resolution of your pneumothorax, coordinate with your PCP office to set up the test. Your hydrochlorothiazide will be discontinued and you will be placed on small dose Lasix, maintain fluid restriction of 1800 mL a day, keep left lower extremity elevated when possible. As discussed at the bedside, follow-up on your left thyroid mass and right renal lesion with your oncology upon discharge. Take your medications as prescribed. Please make sure that you are able to get your medications today by calling your pharmacy before you leave the hospital so that your treatment continuity is not broken. Pending Studies at Discharge: No Stand-Alone Forms: My [facility] [employer], Smoking Cessation Medications and DC Order Prescriptions: New furosemide 20 mg Tablet 20 mg PO QAM Qty: 30 0RF Continued cholecalciferol (vitamin D3) [Vitamin D3] 125 mcg (5,000 unit) Tablet 1,000 mcg PO QAM ondansetron 8 mg Tablet,Disintegrating 8 mg PO DIRECTED PRN (Reason: n/v) potassium chloride 20 mEq tablet,ER particles/crystals 40 meq PO DAILY albuterol sulfate [Ventolin HFA] 90 mcg/actuation HFA aerosol inhaler 2 puff INHALATION Q4H PRN (Reason: sob) prochlorperazine maleate [Compazine] 10 mg tablet 10 mg PO Q6H PRN (Reason: Nausea) gabapentin 100 mg capsule 300 mg PO TID Eliquis 5 mg tablet 5 mg PO BID Discontinued hydrochlorothiazide 25 mg tablet 25 mg PO QAM Discharge Orders: Discharge Order (Routine); Ordered 09/09/24 Ordered By: Humble Ross Admission Data Admit Date/Time: 09/01/24 21:34 Attending Provider: Humble Ross Admit Provider: Chun Hannah Primary Care Provider: Venessa Kaufman Other Providers: Chun Hannah; Alexis Gutierrez; Keyur Alvarado A
[2024-09-09 12:10] VITALS: RESP 18; TEMP 98.6; O2SAT 95
[2024-09-09 12:28] VITALS: BP 126/78; PULSE 84
== END 2024-09-09 12:28 | disposition home health service (06) | DRG 181 ==
LOC: ED 14:05 → SUATTDRO 21:34 → 2S 21:34